=== PATIENT | female | born 1960 | race Caucasian/White ===

== ENCOUNTER 2022-02-28 11:00 | Inpatient (IN) ==
[2022-02-28 11:30] LABS: Basophils % 0.2 % (0.0-0.8); Eosinophils # 0.2 10*3/uL (0.0-0.87); Eosinophils % 1.9 % (0.00-10.9); Hematocrit 24.5 VOL% (35.7-47.0); Immature Granulocytes % 0.6 %; Immature Granulocytes Absolute 0.05 #; Lymphocytes # 2.5 10*3/uL (1.4-4.0); Lymphocytes % 27.2 % (21.3-54.2); Mean Corpuscular HGB Conc 32.7 GM/DL (32-36); Mean Corpuscular Volume 87.2 FL (87-102); Mean Platelet Volume 11.1 FL (9.6-12.0); Monocytes # 0.6 10*3/uL (0.11-0.8); Monocytes % 6.7 % (1.7-12.7); Neutrophils % 63.4 % (38.7-73.9); Platelet Count 110 T/CUMM (130-400); Red Blood Count 2.81 MC/CUMM (3.8-5.5); Red Cell Distribution Width 14.2 % (9.3-17.3); White Blood Count 9.1 T/CUMM (4-12)
[2022-02-28] MEDS ORDERED: ASPIRIN 325 MG TABLET PO STA (11:36)
[2022-02-28] MEDS ORDERED: ONDANSETRON 4 MG/2 ML VIAL IV STA (11:36)
[2022-02-28] MEDS ORDERED: NITROGLYCERIN SL 0.4 MG TABLET SL PRN ×2 (11:36→13:55)
[2022-02-28] MEDS ORDERED: METOPROLOL TARTRATE 5 MG/5 ML VIAL IV ONE (11:41)
[2022-02-28] MEDS: METOPROLOL TARTRATE 5 MG/5 ML VIAL IV SCH ×15 (11:49→17:35)
[2022-02-28 12:48] LABS: Albumin 3.5 G/DL (3.4-5.0); Bilirubin,Total 0.6 MG/DL (0.20-1.00); Calcium 8.4 MG/DL (8.5-10.1); Osmolality,Calculated 292.4 MOS/KG (273-304)
[2022-02-28 13:01] LABS: Barbiturates Screen,Urine Negative (Negative); Benzodiazepines Screen,Urine Negative (Negative); Cannabinoid Screen,Urine Negative (Negative); Opiate Screen,Urine Negative (Negative); Phencyclidine Screen,Urine Negative (Negative)
[2022-02-28] MEDS ORDERED: INSULIN REGULAR 100 UNIT/ML SUBCUT STA (13:31)
[2022-02-28] MEDS ORDERED: GLUCAGON 1 MG VIAL IM PRN ×2 (13:55→17:03)
[2022-02-28] MEDS ORDERED: MAGNESIUM SULF RIDER 2 GM/50 ML PREMIX IV PRN ×2 (13:55→15:18)
[2022-02-28] MEDS ORDERED: DEXTROSE 10% 250 ML BAG IV PRN ×2 (13:55→17:07)
[2022-02-28] MEDS ORDERED: ENOXAPARIN 40 MG/0.4 ML SYRINGE SUBCUT SCH (14:00)
[2022-02-28] MEDS ORDERED: SODIUM CHLORIDE 0.9% 1,000 ML IV STA (14:20)
[2022-02-28 14:33] LABS: CKMB % 7.27 %
[2022-02-28] MEDS: PANTOPRAZOLE 40 MG TABLET PO SCH (14:33)
[2022-02-28 14:37] LABS: High Sensitive Troponin I* 1290.8 ng/L (0-54)
[2022-02-28] MEDS: ASCORBIC ACID 500 MG TABLET PO SCH ×2 (15:07→20:45)
[2022-02-28] MEDS ORDERED: MAGNESIUM SULF RIDER 4 GM/100 ML PREMIX IV PRN (15:18)
[2022-02-28] MEDS: METOPROLOL TARTRATE 25 MG TABLET PO SCH ×2 (15:37→20:44)
[2022-02-28] MEDS ORDERED: POTASSIUM CHLORIDE RIDER 10 MEQ/100 ML PREMIX IV PRN (15:51)
[2022-02-28] MEDS ORDERED: diphenhydrAMINE CAP 50 MG CAPSULE PO ONE (15:51)
[2022-02-28] MEDS ORDERED: HEPARIN/NACL 0.9% 2 UNITS/ML 2,000 UNIT/1,000 ML BAG IV ONE (16:00)
[2022-02-28] MEDS ORDERED: MIDAZOLAM 2 MG/2 ML VIAL ONE ×2 (16:00→16:34)
[2022-02-28] MEDS ORDERED: fentaNYL 100 MCG/2 ML VIAL ONE (16:00)
[2022-02-28] MEDS ORDERED: HYDROmorphone 1 MG/1 ML SYRINGE ONE (16:33)
[2022-02-28] MEDS ORDERED: DIAZEPAM 5 MG TABLET PO ONE (17:00)
[2022-02-28] MEDS ORDERED: MORPHINE 2 MG/1 ML SYRINGE IV PRN (17:04)
[2022-02-28] MEDS ORDERED: NITROGLYCERIN DRIP 50 MG/250 ML BOTTLE IV PRN (17:04)
[2022-02-28] MEDS: SODIUM CHLORIDE 0.9% 1,000 ML IV SCH (17:15)
[2022-02-28] MEDS ORDERED: diphenhydrAMINE CAP 25 MG CAPSULE PO PRN (17:28)
[2022-02-28] MEDS ORDERED: SODIUM CHLORIDE 0.9% 1,000 ML IV PRN ×2 (17:28→17:30)
[2022-02-28 17:46] LABS: Calcium 7.7 MG/DL (8.5-10.1); Osmolality,Calculated 286.8 MOS/KG (273-304); Potassium 4.3 MMOL/L (3.5-5.1)
[2022-02-28] MEDS: INSULIN REGULAR 100 UNIT/ML SUBCUT SCH ×2 (17:51→20:45)
[2022-02-28 18:09] LABS: % Iron Saturation 22.3 % (18-50); Ferritin 22.1 ng/mL (8-252)
[2022-02-28 18:13] LABS: Folate 22.5 NG/ML (5.38-24.0)
[2022-02-28] MEDS: DOCUSATE SODIUM 100 MG CAPSULE PO SCH (20:44)
[2022-03-01] MEDS: ACETAMINOPHEN 325 MG TABLET PO PRN ×3 (01:31→14:52)
[2022-03-01 04:42] LABS: Basophils % 0.1 % (0.0-0.8); Eosinophils # 0.1 10*3/uL (0.0-0.87); Eosinophils % 1.6 % (0.00-10.9); Hemoglobin 7.7 GM/DL (12.0-16.0); Immature Granulocytes % 0.6 %; Immature Granulocytes Absolute 0.05 #; Lymphocytes # 2.7 10*3/uL (1.4-4.0); Lymphocytes % 30.9 % (21.3-54.2); Mean Corpuscular HGB Conc 33.5 GM/DL (32-36); Mean Corpuscular Volume 88.8 FL (87-102); Mean Platelet Volume 11.2 FL (9.6-12.0); Monocytes # 0.7 10*3/uL (0.11-0.8); Monocytes % 7.9 % (1.7-12.7); NRBC # 0.02 10*3/uL; Neutrophils % 58.9 % (38.7-73.9); Platelet Count 91 T/CUMM (130-400); Red Blood Count 2.59 MC/CUMM (3.8-5.5); Red Cell Distribution Width 14.5 % (9.3-17.3); White Blood Count 8.8 T/CUMM (4-12)
[2022-03-01 05:03] LABS: Calcium 7.5 MG/DL (8.5-10.1); Hypochromia 1+; Osmolality,Calculated 290.1 MOS/KG (273-304); Platelet Estimate Decreased; Potassium 3.8 MMOL/L (3.5-5.1)
[2022-03-01] MEDS: ONDANSETRON 4 MG/2 ML VIAL IV PRN ×2 (05:46→21:10)
[2022-03-01] MEDS: SODIUM CHLORIDE 0.9% 1,000 ML IV SCH ×3 (08:38→17:46)
[2022-03-01] MEDS: ENALAPRIL 20 MG TABLET PO SCH (08:48)
[2022-03-01] MEDS: DOCUSATE SODIUM 100 MG CAPSULE PO SCH ×2 (08:48→22:37)
[2022-03-01] MEDS: METOPROLOL TARTRATE 25 MG TABLET PO SCH ×2 (08:48→21:09)
[2022-03-01] MEDS: ASCORBIC ACID 500 MG TABLET PO SCH ×2 (08:48→21:09)
[2022-03-01] MEDS: PANTOPRAZOLE 40 MG TABLET PO SCH (08:48)
[2022-03-01] MEDS: ROSUVASTATIN 20 MG TABLET PO SCH (08:49)
[2022-03-01] MEDS: ASPIRIN EC 81 MG TABLET PO SCH (08:49)
[2022-03-01] MEDS: INSULIN REGULAR 100 UNIT/ML SUBCUT SCH ×4 (08:49→21:12)
[2022-03-01] MEDS ORDERED: ASPIRIN EC 325 MG TABLET PO SCH (09:00)
[2022-03-01 09:27] LABS: Risk Ratio 2.94
[2022-03-01 09:37] LABS: VLDL Cholesterol 42.2 MG/DL
[2022-03-01 09:44] LABS: Hematocrit 25.7 VOL% (35.7-47.0); Hemoglobin 8.6 GM/DL (12.0-16.0)
[2022-03-01] MEDS ORDERED: PANTOPRAZOLE 40 MG VIAL IV ONE (11:00)
[2022-03-01] MEDS: HEPARIN 5,000 UNIT/1 ML VIAL SUBCUT SCH ×2 (11:05→21:17)
[2022-03-01 14:08] LABS: Basophils % 0.3 % (0.0-0.8); Eosinophils # 0.1 10*3/uL (0.0-0.87); Eosinophils % 0.8 % (0.00-10.9); Hematocrit 22.2 VOL% (35.7-47.0); Hemoglobin 7.5 GM/DL (12.0-16.0); Immature Granulocytes % 0.8 %; Immature Granulocytes Absolute 0.07 #; Lymphocytes # 2.1 10*3/uL (1.4-4.0); Lymphocytes % 22.8 % (21.3-54.2); Mean Corpuscular HGB Conc 33.8 GM/DL (32-36); Mean Corpuscular Volume 88.1 FL (87-102); Mean Platelet Volume 11.4 FL (9.6-12.0); Monocytes # 0.7 10*3/uL (0.11-0.8); Monocytes % 7.6 % (1.7-12.7); NRBC # 0.02 10*3/uL; Neutrophils % 67.7 % (38.7-73.9); Red Blood Count 2.52 MC/CUMM (3.8-5.5); Red Cell Distribution Width 14.7 % (9.3-17.3)
[2022-03-01 14:13] LABS: Platelet Count 91 T/CUMM (130-400)
[2022-03-01 14:26] LABS: Anisocytosis 1+
[2022-03-01 14:27] LABS: Hypochromia 1+; Platelet Estimate Decreased; Polychromasia Few
[2022-03-01] MEDS ORDERED: SODIUM CHLORIDE 0.9% 1,000 ML IV PRN (14:38)
[2022-03-01] MEDS ORDERED: FUROSEMIDE 40 MG/4 ML VIAL IV PRN (14:38)
[2022-03-01] MEDS: PANTOPRAZOLE 40 MG VIAL IV SCH (21:10)
[2022-03-01] MEDS: INSULIN GLARGINE 100 UNIT/ML SUBCUT SCH (21:11)
[2022-03-02] MEDS: ACETAMINOPHEN 325 MG TABLET PO PRN ×3 (01:00→23:35)
[2022-03-02] MEDS: ONDANSETRON 4 MG/2 ML VIAL IV PRN ×2 (01:11→21:18)
[2022-03-02] MEDS: SODIUM CHLORIDE 0.9% 1,000 ML IV SCH ×2 (02:12→08:34)
[2022-03-02 02:39] LABS: Basophils % 0.4 % (0.0-0.8); Eosinophils # 0.1 10*3/uL (0.0-0.87); Eosinophils % 1.1 % (0.00-10.9); Immature Granulocytes % 0.4 %; Immature Granulocytes Absolute 0.03 #; Lymphocytes # 2.5 10*3/uL (1.4-4.0); Lymphocytes % 34.2 % (21.3-54.2); Mean Corpuscular Volume 88.2 FL (87-102); Mean Platelet Volume 11.5 FL (9.6-12.0); Monocytes # 0.6 10*3/uL (0.11-0.8); Monocytes % 8.2 % (1.7-12.7); NRBC # 0.02 10*3/uL; Neutrophils % 55.7 % (38.7-73.9); Red Cell Distribution Width 15.3 % (9.3-17.3); White Blood Count 7.3 T/CUMM (4-12)
[2022-03-02 02:42] LABS: Hemoglobin 10.2 GM/DL (12.0-16.0)
[2022-03-02 02:43] LABS: Platelet Count 79 T/CUMM (130-400)
[2022-03-02 02:50] LABS: INR 1.1; PT Patient Result 11.6 SECS (10.5-12.0); Partial Thromboplastin Time 23.6 SECS (23.8-32.1)
[2022-03-02 02:51] LABS: Potassium 3.5 MMOL/L (3.5-5.1)
[2022-03-02 02:59] LABS: Hypochromia 1+; Platelet Estimate Decreased; Polychromasia Few; Reactive Lymphocytes 1+
[2022-03-02] MEDS: DOCUSATE SODIUM 100 MG CAPSULE PO SCH ×2 (08:37→21:46)
[2022-03-02] MEDS: ASCORBIC ACID 500 MG TABLET PO SCH ×2 (08:47→21:18)
[2022-03-02] MEDS: ASPIRIN EC 81 MG TABLET PO SCH (08:47)
[2022-03-02] MEDS: PANTOPRAZOLE 40 MG VIAL IV SCH ×2 (09:00→21:18)
[2022-03-02] MEDS: HEPARIN 5,000 UNIT/1 ML VIAL SUBCUT SCH ×2 (09:00→21:38)
[2022-03-02] MEDS: ENALAPRIL 20 MG TABLET PO SCH (09:00)
[2022-03-02] MEDS: INSULIN REGULAR 100 UNIT/ML SUBCUT SCH ×4 (09:00→21:20)
[2022-03-02] MEDS: METOPROLOL TARTRATE 25 MG TABLET PO SCH ×2 (09:00→21:18)
[2022-03-02] MEDS: ROSUVASTATIN 20 MG TABLET PO SCH (09:00)
[2022-03-02] MEDS ORDERED: POTASSIUM CHLORIDE 20 MEQ TABLET PO ONE (11:00)
[2022-03-02] MEDS: INSULIN GLARGINE 100 UNIT/ML SUBCUT SCH (21:20)
[2022-03-03 04:39] LABS: Basophils % 0.4 % (0.0-0.8); Eosinophils # 0.1 10*3/uL (0.0-0.87); Eosinophils % 2.2 % (0.00-10.9); Hematocrit 26.6 VOL% (35.7-47.0); Hemoglobin 8.9 GM/DL (12.0-16.0); Immature Granulocytes Absolute 0.05 #; Lymphocytes # 1.9 10*3/uL (1.4-4.0); Lymphocytes % 37.3 % (21.3-54.2); Mean Corpuscular HGB Conc 33.5 GM/DL (32-36); Mean Corpuscular Volume 90.5 FL (87-102); Mean Platelet Volume 11.7 FL (9.6-12.0); Monocytes # 0.4 10*3/uL (0.11-0.8); Monocytes % 8.5 % (1.7-12.7); Neutrophils % 50.6 % (38.7-73.9); Red Blood Count 2.94 MC/CUMM (3.8-5.5); Red Cell Distribution Width 15.9 % (9.3-17.3)
[2022-03-03 04:43] LABS: Platelet Count 63 T/CUMM (130-400)
[2022-03-03 04:44] LABS: White Blood Count 5.1 T/CUMM (4-12)
[2022-03-03 04:53] LABS: Calcium 8.2 MG/DL (8.5-10.1); Osmolality,Calculated 286.3 MOS/KG (273-304); Potassium 3.5 MMOL/L (3.5-5.1)
[2022-03-03 05:14] LABS: Risk Ratio 2.57; VLDL Cholesterol 33.6 MG/DL
[2022-03-03] MEDS ORDERED: DEXTROSE 50% 25 GM/50 ML VIAL IV PRN (09:01)
[2022-03-03] MEDS: ASPIRIN EC 81 MG TABLET PO SCH (09:51)
[2022-03-03] MEDS: METOPROLOL TARTRATE 25 MG TABLET PO SCH ×2 (09:51→21:01)
[2022-03-03] MEDS: ASCORBIC ACID 500 MG TABLET PO SCH ×2 (09:51→21:00)
[2022-03-03] MEDS: ENALAPRIL 20 MG TABLET PO SCH (09:52)
[2022-03-03] MEDS: INSULIN REGULAR 100 UNIT/ML SUBCUT SCH ×4 (09:52→21:01)
[2022-03-03] MEDS: PANTOPRAZOLE 40 MG VIAL IV SCH ×2 (09:54→21:01)
[2022-03-03] MEDS: HEPARIN 5,000 UNIT/1 ML VIAL SUBCUT SCH ×2 (09:54→21:03)
[2022-03-03] MEDS: ACETAMINOPHEN 325 MG TABLET PO PRN ×2 (10:04→18:21)
[2022-03-03] MEDS: ROSUVASTATIN 20 MG TABLET PO SCH (10:06)
[2022-03-03] MEDS: DOCUSATE SODIUM 100 MG CAPSULE PO SCH ×2 (10:48→21:03)
[2022-03-03 12:29] LABS: Arterial Base Excess iSTAT -1 MMOL/L (-2.5-2.5); Arterial Bicarbonate iSTAT 22.5 MMOL/L (20-26); Arterial O2 Saturation iSTAT 98 % (95-100); Arterial PCO2 iSTAT 30 MM HG (35-48); Arterial PO2 iSTAT 95 MM HG (80-95); Arterial Total CO2 iSTAT 23 MMO/L (23-27); Arterial pH iSTAT 7.485 (7.35-7.45)
[2022-03-03] MEDS: SODIUM CHLORIDE 0.9% 1,000 ML IV SCH (15:30)
[2022-03-03] MEDS: CHLORHEXIDINE 4% SOLN 118 ML BOTTLE TOP SCH ×2 (16:30→21:03)
[2022-03-03] MEDS ORDERED: ZALEPLON 5 MG CAPSULE PO PRN (20:44)
[2022-03-03] MEDS ORDERED: INSULIN GLARGINE 100 UNIT/ML SUBCUT SCH (21:00)
[2022-03-03] MEDS: CHLORHEXIDINE 0.12% ORAL RINSE 60 ML BOTTLE SWISH/SPIT SCH (21:04)
[2022-03-04 03:05] LABS: Basophils % 0.3 % (0.0-0.8); Eosinophils # 0.1 10*3/uL (0.0-0.87); Hematocrit 25.3 VOL% (35.7-47.0); Hemoglobin 8.4 GM/DL (12.0-16.0); Immature Granulocytes Absolute 0.04 #; Lymphocytes # 1.5 10*3/uL (1.4-4.0); Lymphocytes % 37.3 % (21.3-54.2); Mean Corpuscular HGB Conc 33.2 GM/DL (32-36); Mean Corpuscular Volume 90.7 FL (87-102); Monocytes # 0.3 10*3/uL (0.11-0.8); Monocytes % 8.4 % (1.7-12.7); Platelet Count 60 T/CUMM (130-400); Red Blood Count 2.79 MC/CUMM (3.8-5.5); Red Cell Distribution Width 16.6 % (9.3-17.3); White Blood Count 3.9 T/CUMM (4-12)
[2022-03-04 03:25] LABS: Albumin 2.8 G/DL (3.4-5.0); Bilirubin,Total 0.5 MG/DL (0.20-1.00); Osmolality,Calculated 285.8 MOS/KG (273-304); Potassium 3.4 MMOL/L (3.5-5.1); Total Protein 5.7 G/DL (6.4-8.2)
[2022-03-04 03:27] LABS: Platelet Estimate Decreased
[2022-03-04] MEDS: POTASSIUM CHLORIDE 20 MEQ TABLET PO PRN ×2 (03:45→04:30)
[2022-03-04] MEDS: CHLORHEXIDINE 4% SOLN 118 ML BOTTLE TOP SCH (03:53)
[2022-03-04] MEDS ORDERED: VANCOMYCIN 500 MG VIAL ONE (04:20)
[2022-03-04] MEDS ORDERED: PAPAVERINE 60 MG/2 ML VIAL ONE (04:20)
[2022-03-04] MEDS ORDERED: VANCOMYCIN 1,000 MG VIAL ONE (04:20)
[2022-03-04] MEDS ORDERED: CEFUROXIME INJ 1,500 MG in SODIUM CHLORIDE 0.9% 100 ML IV ONE (05:00)
[2022-03-04] MEDS: ONDANSETRON 4 MG/2 ML VIAL IV PRN (05:55)
[2022-03-04] MEDS ORDERED: DIAZEPAM 5 MG TABLET PO ONE (06:00)
[2022-03-04] MEDS ORDERED: LIDOCAINE 2% 5 ML VIAL ONE ×2 (06:01→10:39)
[2022-03-04] MEDS ORDERED: PHENYLEPHRINE 1 MG/10 ML SYRINGE IV ONE (06:01)
[2022-03-04] MEDS ORDERED: ETOMIDATE 40 MG/20 ML VIAL IV ONE (06:01)
[2022-03-04] MEDS ORDERED: MIDAZOLAM 10 MG/2 ML VIAL ONE ×4 (06:01→09:30)
[2022-03-04] MEDS ORDERED: VECURONIUM 10 MG VIAL IV ONE ×3 (06:01→09:29)
[2022-03-04] MEDS ORDERED: SUFentanil 250 MCG/5 ML AMP ONE (06:02)
[2022-03-04] MEDS ORDERED: MINERAL OIL/PETROLATUM OPH OINT 3.5 GM TUBE ONE (06:03)
[2022-03-04] MEDS ORDERED: SODIUM BICARBONATE 50 MEQ/50 ML VIAL IV ONE ×2 (07:16→10:41)
[2022-03-04] MEDS ORDERED: CALCIUM CHLORIDE 1,000 MG/10 ML SYRINGE IV ONE (07:16)
[2022-03-04] MEDS ORDERED: PHENYLEPHRINE DRIP 40 MG/250 ML PREMIX IV ONE (07:16)
[2022-03-04] MEDS ORDERED: POTASSIUM CHLORIDE RIDER 20 MEQ/100 ML PREMIX IV ONE (07:16)
[2022-03-04] MEDS ORDERED: EPINEPHrine 1 MG/10 ML SYRINGE ONE (07:16)
[2022-03-04] MEDS ORDERED: NITROPRUSSIDE 50 MG/2 ML VIAL ONE (07:16)
[2022-03-04] MEDS ORDERED: ALBUMIN 5% 12.5 GM/250 ML VIAL IV ONE ×2 (07:17)
[2022-03-04 07:39] LABS: ABG Base Excess -3.1 MMOL/L (-2.5-2.5); ABG HCO3 21.8 MMOL/L (20-26); ABG Oxygen Saturation 99.8 % (95-100); ABG PCO2 52.1 MM HG (35-48); ABG PH 7.272 (7.35-7.45); ABG TCO2 22.7 MMOL/L (23-27); Glucose Heart Surgery 154 MG/DL (74-106); Hematocrit Heart Surgery 24.9 PERCENT (37-47); Ionized Calcium Arterial 1.17 MMOL/L (1.21-1.46); PCO2 Patient Temp Arterial 49.6 MMHG; PH Patient Temp Arterial 7.285; Patient Temperature 36 CELCIUS; Potassium Heart/CVR 3.5 MMOL/L (3.5-5.1); Sodium Heart/CVR 144 MMOL/L (135-145)
[2022-03-04 07:40] LABS: Bacteria,Urine Occasional /HPF (Few); Mucus,Urine Occasional /LPF (Occasional); Squamous Epithelial Cell,Urine Occasional /HPF (0-10)
[2022-03-04 07:42] LABS: Bilirubin,Urine Negative (Negative); Blood, Urine Negative (Negative); Glucose,Urine (UA) Negative (Negative); Ketones,Urine Trace mg/dL (Negative); Nitrite,Urine Negative (Negative); Protein,Urine Negative (Negative); Urine Appearance Clear (Clear); Urine Color Yellow (Yellow); Urine Specific Gravity 1.015 (1.001-1.035); Urine Urobilinogen 0.2 eU/dL (<2.0); Urine pH 5.5 (4.5-8.0)
[2022-03-04] MEDS ORDERED: CALCIUM CHLORIDE 1,000 MG/10 ML VIAL IV ONE ×2 (08:39→10:57)
[2022-03-04] MEDS ORDERED: AMINOCAPROIC ACID 5,000 MG/20 ML VIAL ONE (08:39)
[2022-03-04] MEDS ORDERED: HEPARIN/NACL 0.9% 2 UNITS/ML 1,000 UNIT/500 ML BAG IV ONE (08:39)
[2022-03-04] MEDS ORDERED: LACTATED RINGERS 1,000 ML IV ONE (08:39)
[2022-03-04] MEDS ORDERED: SODIUM CHLORIDE 0.9% 1,000 ML IV ONE (08:39)
[2022-03-04] MEDS ORDERED: SODIUM CHLORIDE 0.9% 250 ML IV ONE (08:39)
[2022-03-04] MEDS ORDERED: PHENYLEPHRINE DRIP 20 MG/250 ML PREMIX IV ONE ×2 (08:39→12:07)
[2022-03-04] MEDS ORDERED: SEVOFLURANE 1 UNIT/15 MINUTE INH ONE (08:39)
[2022-03-04] MEDS: DOCUSATE SODIUM 100 MG CAPSULE PO SCH (08:58)
[2022-03-04] MEDS: INSULIN REGULAR 100 UNIT/ML SUBCUT SCH (08:58)
[2022-03-04] MEDS: ASPIRIN EC 81 MG TABLET PO SCH (08:58)
[2022-03-04] MEDS: SODIUM CHLORIDE 0.9% 1,000 ML IV SCH (08:59)
[2022-03-04] MEDS: METOPROLOL TARTRATE 25 MG TABLET PO SCH (08:59)
[2022-03-04] MEDS: CHLORHEXIDINE 0.12% ORAL RINSE 60 ML BOTTLE SWISH/SPIT SCH ×2 (08:59→20:36)
[2022-03-04] MEDS: PANTOPRAZOLE 40 MG VIAL IV SCH (08:59)
[2022-03-04] MEDS: ENALAPRIL 20 MG TABLET PO SCH (08:59)
[2022-03-04] MEDS: ROSUVASTATIN 20 MG TABLET PO SCH (08:59)
[2022-03-04] MEDS: HEPARIN 5,000 UNIT/1 ML VIAL SUBCUT SCH (08:59)
[2022-03-04] MEDS: ASCORBIC ACID 500 MG TABLET PO SCH (08:59)
[2022-03-04 09:20] LABS: PCO2 Patient Temp Venous 34.6 MM HG; PH Patient Temp Venous 7.399; PO2 Patient Temp Venous 33.9 MM HG; Potassium Heart/CVR 5.5 MMOL/L (3.5-5.1); VBG Base Excess -2.9 MEQ/L (0-4); VBG HCO3 21.7 MEQ/L (24-28); VBG Oxygen Saturation 74.8 %; VBG PH 7.356; VBG PO2 41.7 MMHG (17-40); VBG Total CO2 20.8 MMOL/L
[2022-03-04] MEDS ORDERED: SUFentanil 50 MCG/ML AMP ONE ×2 (09:29)
[2022-03-04 09:50] LABS: Hematocrit Heart Surgery 29.2 PERCENT (37-47); Hemoglobin Heart Surgery 9.4 G/DL (12.0-16.0); PCO2 Patient Temp Venous 38.1 MM HG; PH Patient Temp Venous 7.4; PO2 Patient Temp Venous 34.6 MM HG; Potassium Heart/CVR 5.1 MMOL/L (3.5-5.1); VBG Base Excess -0.9 MEQ/L (0-4); VBG HCO3 23.3 MEQ/L (24-28); VBG Oxygen Saturation 74.5 %; VBG PCO2 44.1 MMHG (41-51); VBG PH 7.357; VBG PO2 42.7 MMHG (17-40); VBG Total CO2 22.8 MMOL/L
[2022-03-04] MEDS ORDERED: THROMBIN TOPICAL (RECOMBINANT) 5,000 UNIT VIAL TOP ONE (09:56)
[2022-03-04 10:33] LABS: ABG HCO3 21.9 MMOL/L (20-26); ABG Oxygen Saturation 99.6 % (95-100); ABG PCO2 34.5 MM HG (35-48); ABG PH 7.397 (7.35-7.45); ABG TCO2 19.1 MMOL/L (23-27); Glucose Heart Surgery 372 MG/DL (74-106); Hematocrit Heart Surgery 33.2 PERCENT (37-47); Hemoglobin Heart Surgery 10.8 G/DL (12.0-16.0); Ionized Calcium Arterial 1.17 MMOL/L (1.21-1.46); PCO2 Patient Temp Arterial 34.5 MMHG; PH Patient Temp Arterial 7.397; Patient Temperature 37 CELCIUS; Potassium Heart/CVR 4.4 MMOL/L (3.5-5.1); Sodium Heart/CVR 139 MMOL/L (135-145)
[2022-03-04] MEDS ORDERED: MAGNESIUM SULFATE 5 GM/10 ML VIAL IV ONE (10:39)
[2022-03-04] MEDS ORDERED: ALBUMIN 25% 25 GM/100 ML VIAL IV ONE (10:39)
[2022-03-04] MEDS ORDERED: PROTAMINE SULFATE 250 MG/25 ML VIAL IV ONE (10:40)
[2022-03-04] MEDS ORDERED: MANNITOL 12.5 GM/50 ML VIAL IV ONE (10:40)
[2022-03-04] MEDS ORDERED: methylPREDNISolone SOD SUC 1,000 MG/8 ML VIAL ONE (10:40)
[2022-03-04] MEDS ORDERED: DEXTROSE 5% KCL 20 MEQ 20 MEQ/1,000 ML BAG IV ONE (10:40)
[2022-03-04] MEDS ORDERED: FUROSEMIDE 20 MG/2 ML VIAL ONE (10:40)
[2022-03-04] MEDS ORDERED: HEPARIN 10,000 UNIT/10 ML VIAL ONE (10:40)
[2022-03-04] MEDS ORDERED: PHENYLEPHRINE DRIP 40 MG/250 ML PREMIX IV PRN (10:49)
[2022-03-04] MEDS ORDERED: MAGNESIUM SULF RIDER 2 GM/50 ML PREMIX IV PRN (10:49)
[2022-03-04] MEDS ORDERED: LACTATED RINGERS 250 ML IV PRN (10:49)
[2022-03-04] MEDS ORDERED: ONDANSETRON 4 MG/2 ML VIAL IV PRN (10:49)
[2022-03-04] MEDS ORDERED: NITROPRUSSIDE 100 MG in DEXTROSE 5% 250 ML IV PRN (10:49)
[2022-03-04] MEDS ORDERED: CALCIUM CHLORIDE 1,000 MG/10 ML SYRINGE IV PRN (10:49)
[2022-03-04] MEDS ORDERED: INSULIN REGULAR 100 UNIT/ML IV PRN (10:49)
[2022-03-04] MEDS ORDERED: INSULIN REGULAR 100 UNIT/ML IV ONE (10:49)
[2022-03-04] MEDS ORDERED: DEXTROSE 10% 250 ML BAG IV PRN ×2 (10:49)
[2022-03-04] MEDS ORDERED: ACETAMINOPHEN 650 MG SUPP RECTAL PRN (10:49)
[2022-03-04] MEDS ORDERED: MIDAZOLAM 10 MG/2 ML VIAL IV PRN (10:49)
[2022-03-04] MEDS ORDERED: CHLORHEXIDINE 4% SOLN 118 ML BOTTLE TOP PRN (10:49)
[2022-03-04] MEDS ORDERED: VECURONIUM 10 MG VIAL IV PRN ×2 (10:49)
[2022-03-04] MEDS ORDERED: MAGNESIUM SULF RIDER 4 GM/100 ML PREMIX IV PRN (10:49)
[2022-03-04] MEDS ORDERED: MIDAZOLAM 2 MG/2 ML VIAL IV PRN (10:49)
[2022-03-04] MEDS ORDERED: POTASSIUM CHLORIDE RIDER 10 MEQ/100 ML PREMIX IV PRN (10:49)
[2022-03-04] MEDS ORDERED: SODIUM CHLORIDE 0.45% 1,000 ML IV SCH ×2 (11:00)
[2022-03-04 11:41] LABS: ABG Base Excess -0.5 MMOL/L (-2.5-2.5); ABG Oxygen Saturation 98.7 % (95-100); ABG PCO2 36.3 MM HG (35-48); ABG TCO2 21.2 MMOL/L (23-27); Glucose Heart Surgery 345 MG/DL (74-106); Hematocrit Heart Surgery 33.3 PERCENT (37-47); Hemoglobin Heart Surgery 10.8 G/DL (12.0-16.0); Potassium Heart/CVR 3.9 MMOL/L (3.5-5.1)
[2022-03-04 11:43] LABS: Basophils % 0.2 % (0.0-0.8); Eosinophils # 0.1 10*3/uL (0.0-0.87); Hematocrit 31.8 VOL% (35.7-47.0); Hemoglobin 10.6 GM/DL (12.0-16.0); Immature Granulocytes Absolute 0.12 #; Lymphocytes # 1.3 10*3/uL (1.4-4.0); Lymphocytes % 10.8 % (21.3-54.2); Mean Corpuscular HGB Conc 33.3 GM/DL (32-36); Mean Corpuscular Volume 86.2 FL (87-102); Monocytes # 0.7 10*3/uL (0.11-0.8); Monocytes % 5.8 % (1.7-12.7); Neutrophils % 81.2 % (38.7-73.9); Platelet Count 108 T/CUMM (130-400); Red Blood Count 3.69 MC/CUMM (3.8-5.5); Red Cell Distribution Width 17.5 % (9.3-17.3); White Blood Count 12.1 T/CUMM (4-12)
[2022-03-04 11:53] LABS: INR 1.1; PT Patient Result 11.9 SECS (10.5-12.0)
[2022-03-04] MEDS: POTASSIUM CHLORIDE RIDER 20 MEQ/100 ML PREMIX IV PRN ×2 (11:55→20:36)
[2022-03-04] MEDS: INSULIN REGULAR DRIP 100 ML IV SCH (11:58)
[2022-03-04 12:22] LABS: Bilirubin,Total 1.5 MG/DL (0.20-1.00); Calcium 9.8 MG/DL (8.5-10.1); Osmolality,Calculated 293.1 MOS/KG (273-304); Potassium 3.9 MMOL/L (3.5-5.1); Total Protein 5.5 G/DL (6.4-8.2)
[2022-03-04 12:23] LABS: CKMB % 5.41 %
[2022-03-04 12:25] LABS: High Sensitive Troponin I* 2987.6 ng/L (0-54)
[2022-03-04] MEDS ORDERED: AMIODARONE 150 MG/3 ML VIAL ONE (13:14)
[2022-03-04] MEDS ORDERED: AMIODARONE 450 MG/9 ML VIAL IV ONE (13:14)
[2022-03-04] MEDS ORDERED: AMIODARONE INJ 150 MG in DEXTROSE 5% 100 ML IV ONE (13:17)
[2022-03-04 13:18] LABS: ABG Base Excess 0.3 MMOL/L (-2.5-2.5); ABG HCO3 24.8 MMOL/L (20-26); ABG Oxygen Saturation 99.8 % (95-100); ABG PCO2 38.9 MM HG (35-48); ABG PH 7.412 (7.35-7.45); ABG TCO2 22.3 MMOL/L (23-27); Glucose Heart Surgery 307 MG/DL (74-106); Hematocrit Heart Surgery 33.4 PERCENT (37-47); Hemoglobin Heart Surgery 10.8 G/DL (12.0-16.0)
[2022-03-04] MEDS: ALBUMIN 5% 12.5 GM/250 ML VIAL IV PRN ×2 (13:26→17:02)
[2022-03-04] MEDS ORDERED: AMIODARONE INJ 450 MG in DEXTROSE 5% 241 ML IV SCH ×2 (13:30→19:30)
[2022-03-04] MEDS: LACTATED RINGERS 1,000 ML IV PRN ×2 (13:35→17:04)
[2022-03-04 16:31] LABS: ABG Base Excess -0.6 MMOL/L (-2.5-2.5); ABG HCO3 23.9 MMOL/L (20-26); ABG Oxygen Saturation 98.2 % (95-100); ABG PCO2 41.2 MM HG (35-48); ABG PH 7.381 (7.35-7.45); ABG TCO2 22.2 MMOL/L (23-27); Glucose Heart Surgery 268 MG/DL (74-106); Hematocrit Heart Surgery 31.6 PERCENT (37-47); Hemoglobin Heart Surgery 10.2 G/DL (12.0-16.0); Potassium Heart/CVR 4.1 MMOL/L (3.5-5.1)
[2022-03-04] MEDS: CEFUROXIME INJ 1,500 MG in SODIUM CHLORIDE 0.9% 100 ML IV SCH (18:05)
[2022-03-04 19:35] LABS: ABG Base Excess -1.2 MMOL/L (-2.5-2.5); ABG HCO3 23.4 MMOL/L (20-26); ABG Oxygen Saturation 96.8 % (95-100); ABG PCO2 38.5 MM HG (35-48); ABG PH 7.392 (7.35-7.45); ABG PO2 88.7 MM HG (80-95); ABG TCO2 21.2 MMOL/L (23-27); Glucose Heart Surgery 242 MG/DL (74-106); Hematocrit Heart Surgery 32.5 PERCENT (37-47); Hemoglobin Heart Surgery 10.5 G/DL (12.0-16.0); Potassium Heart/CVR 3.8 MMOL/L (3.5-5.1)
[2022-03-04] MEDS: MORPHINE 2 MG/1 ML SYRINGE IV PRN (19:46)
[2022-03-04] MEDS ORDERED: FUROSEMIDE 40 MG/4 ML VIAL IV ONE (20:11)
[2022-03-04] MEDS: MORPHINE 10 MG/1 ML VIAL IV PRN (20:40)
[2022-03-04 20:47] LABS: CKMB % 7.16 %
[2022-03-05] MEDS: MORPHINE 10 MG/1 ML VIAL IV PRN ×2 (00:26→02:22)
[2022-03-05 04:41] LABS: ABG Base Excess -3.1 MMOL/L (-2.5-2.5); ABG HCO3 21.7 MMOL/L (20-26); ABG Oxygen Saturation 93.6 % (95-100); ABG PCO2 41.3 MM HG (35-48); ABG PH 7.343 (7.35-7.45); ABG PO2 74.6 MM HG (80-95); ABG TCO2 20.3 MMOL/L (23-27); Glucose Heart Surgery 200 MG/DL (74-106); Hematocrit Heart Surgery 33.4 PERCENT (37-47); Hemoglobin Heart Surgery 10.8 G/DL (12.0-16.0); Potassium Heart/CVR 4.6 MMOL/L (3.5-5.1)
[2022-03-05] MEDS: INSULIN REGULAR DRIP 100 ML IV SCH (04:44)
[2022-03-05 04:45] LABS: Basophils % 0.1 % (0.0-0.8); Hematocrit 32.7 VOL% (35.7-47.0); Hemoglobin 10.8 GM/DL (12.0-16.0); Immature Granulocytes % 0.8 %; Immature Granulocytes Absolute 0.09 #; Lymphocytes # 1.2 10*3/uL (1.4-4.0); Lymphocytes % 10.6 % (21.3-54.2); Mean Corpuscular Volume 87.7 FL (87-102); Mean Platelet Volume 11.3 FL (9.6-12.0); Monocytes # 0.6 10*3/uL (0.11-0.8); Monocytes % 4.7 % (1.7-12.7); Neutrophils % 83.8 % (38.7-73.9); Platelet Count 95 T/CUMM (130-400); Red Blood Count 3.73 MC/CUMM (3.8-5.5); Red Cell Distribution Width 19.2 % (9.3-17.3); White Blood Count 11.7 T/CUMM (4-12)
[2022-03-05 05:01] LABS: CKMB % 10.02 %
[2022-03-05 05:06] LABS: High Sensitive Troponin I* 21130.6 ng/L (0-54)
[2022-03-05 05:08] LABS: Albumin 3.4 G/DL (3.4-5.0); Bilirubin,Direct 0.27 MG/DL (0.0-0.20); Bilirubin,Total 0.8 MG/DL (0.20-1.00); Calcium 8.5 MG/DL (8.5-10.1); Osmolality,Calculated 288.1 MOS/KG (273-304); Potassium 4.6 MMOL/L (3.5-5.1); Total Protein 6.2 G/DL (6.4-8.2)
[2022-03-05] MEDS: CEFUROXIME INJ 1,500 MG in SODIUM CHLORIDE 0.9% 100 ML IV SCH ×2 (06:00→18:01)
[2022-03-05] MEDS: MORPHINE 2 MG/1 ML SYRINGE IV PRN (06:14)
[2022-03-05] MEDS ORDERED: GLUCAGON 1 MG VIAL IM PRN ×2 (09:38)
[2022-03-05] MEDS ORDERED: DEXTROSE 10% 250 ML BAG IV PRN (09:38)
[2022-03-05] MEDS ORDERED: MAGNESIUM SULF RIDER 4 GM/100 ML PREMIX IV PRN (09:38)
[2022-03-05] MEDS ORDERED: MAGNESIUM HYDROXIDE SUSP 30 ML UDCUP PO PRN (09:38)
[2022-03-05] MEDS ORDERED: SODIUM CHLOR 0.45% KCL 20 MEQ 20 MEQ/1,000 ML BAG IV SCH (09:38)
[2022-03-05] MEDS ORDERED: DEXTROSE 50% 25 GM/50 ML VIAL IV PRN (09:38)
[2022-03-05] MEDS ORDERED: ONDANSETRON 4 MG/2 ML VIAL IV PRN (09:38)
[2022-03-05] MEDS ORDERED: MAGNESIUM SULF RIDER 2 GM/50 ML PREMIX IV PRN (09:38)
[2022-03-05] MEDS ORDERED: ZALEPLON 5 MG CAPSULE PO PRN (09:38)
[2022-03-05] MEDS: CHLORHEXIDINE 0.12% ORAL RINSE 60 ML BOTTLE SWISH/SPIT SCH ×2 (09:40→22:58)
[2022-03-05] MEDS: ASCORBIC ACID 500 MG TABLET PO SCH ×2 (10:01→21:17)
[2022-03-05] MEDS: METOPROLOL TARTRATE 25 MG TABLET PO SCH ×2 (10:01→21:17)
[2022-03-05] MEDS: AMIODARONE 200 MG TABLET PO SCH ×2 (10:02→21:14)
[2022-03-05] MEDS: PANTOPRAZOLE 40 MG VIAL IV SCH ×2 (10:02→21:13)
[2022-03-05] MEDS: oxyCODONE/ACETAMINOPHEN 5-325 MG TABLET PO PRN ×3 (10:03→21:21)
[2022-03-05] MEDS: INSULIN REGULAR 100 UNIT/ML SUBCUT SCH ×4 (10:09→21:18)
[2022-03-05 12:52] LABS: CKMB % 9.35 %; High Sensitive Troponin I* 14203.2 ng/L (0-54)
[2022-03-05] MEDS: INSULIN GLARGINE 100 UNIT/ML SUBCUT SCH (21:18)
[2022-03-06] MEDS: oxyCODONE/ACETAMINOPHEN 5-325 MG TABLET PO PRN ×4 (01:43→23:56)
[2022-03-06 03:35] LABS: Basophils % 0.1 % (0.0-0.8); Eosinophils % 0.1 % (0.00-10.9); Hematocrit 30.7 VOL% (35.7-47.0); Hemoglobin 9.8 GM/DL (12.0-16.0); Immature Granulocytes % 0.7 %; Immature Granulocytes Absolute 0.09 #; Lymphocytes # 2.3 10*3/uL (1.4-4.0); Mean Corpuscular HGB Conc 31.9 GM/DL (32-36); Mean Corpuscular Volume 91.1 FL (87-102); Mean Platelet Volume 11.7 FL (9.6-12.0); Monocytes # 1.2 10*3/uL (0.11-0.8); Monocytes % 9.9 % (1.7-12.7); NRBC # 0.02 10*3/uL; Neutrophils % 70.2 % (38.7-73.9); Platelet Count 90 T/CUMM (130-400); Red Blood Count 3.37 MC/CUMM (3.8-5.5); Red Cell Distribution Width 18.7 % (9.3-17.3)
[2022-03-06 03:55] LABS: Osmolality,Calculated 275.1 MOS/KG (273-304); Potassium 4.4 MMOL/L (3.5-5.1)
[2022-03-06 03:59] LABS: Albumin 2.9 G/DL (3.4-5.0); Bilirubin,Direct 0.22 MG/DL (0.0-0.20); Bilirubin,Indirect 0.5 MG/DL (0.0-1.0); Bilirubin,Total 0.7 MG/DL (0.20-1.00); CKMB % 5.98 %; Calcium 7.9 MG/DL (8.5-10.1); Potassium 4.4 MMOL/L (3.5-5.1); Total Protein 5.8 G/DL (6.4-8.2)
[2022-03-06 04:02] LABS: High Sensitive Troponin I* 10292.8 ng/L (0-54)
[2022-03-06] MEDS ORDERED: FUROSEMIDE 40 MG/4 ML VIAL IV ONE (06:00)
[2022-03-06] MEDS: AMIODARONE 200 MG TABLET PO SCH ×3 (06:26→21:30)
[2022-03-06] MEDS ORDERED: DILTIAZEM 25 MG/5 ML VIAL IV ONE (06:30)
[2022-03-06] MEDS: DILTIAZEM INJ 100 MG in SODIUM CHLORIDE 0.9% 100 ML IV SCH (07:07)
[2022-03-06] MEDS: METOPROLOL TARTRATE 25 MG TABLET PO SCH ×3 (07:32→21:30)
[2022-03-06] MEDS: PANTOPRAZOLE 40 MG VIAL IV SCH ×2 (08:16→21:32)
[2022-03-06] MEDS: ASPIRIN EC 81 MG TABLET PO SCH (08:18)
[2022-03-06] MEDS: ASCORBIC ACID 500 MG TABLET PO SCH ×2 (08:18→21:30)
[2022-03-06] MEDS: DOCUSATE SODIUM 100 MG CAPSULE PO SCH (08:18)
[2022-03-06] MEDS: FERROUS SULFATE 325 MG TABLET PO SCH (08:19)
[2022-03-06] MEDS: INSULIN REGULAR 100 UNIT/ML SUBCUT SCH ×4 (08:19→21:31)
[2022-03-06] MEDS: CHLORHEXIDINE 0.12% ORAL RINSE 60 ML BOTTLE SWISH/SPIT SCH ×2 (08:43→21:30)
[2022-03-06] MEDS: ROSUVASTATIN 20 MG TABLET PO SCH (13:12)
[2022-03-06] MEDS: INSULIN GLARGINE 100 UNIT/ML SUBCUT SCH (21:31)
[2022-03-07 05:56] LABS: Basophils % 0.1 % (0.0-0.8); Eosinophils # 0.1 10*3/uL (0.0-0.87); Eosinophils % 0.8 % (0.00-10.9); Hematocrit 32.2 VOL% (35.7-47.0); Hemoglobin 10.1 GM/DL (12.0-16.0); Immature Granulocytes % 0.8 %; Lymphocytes # 2.6 10*3/uL (1.4-4.0); Lymphocytes % 21.3 % (21.3-54.2); Mean Corpuscular HGB Conc 31.4 GM/DL (32-36); Mean Corpuscular Volume 92.3 FL (87-102); Mean Platelet Volume 11.7 FL (9.6-12.0); Monocytes # 1.2 10*3/uL (0.11-0.8); Monocytes % 9.6 % (1.7-12.7); Neutrophils % 67.4 % (38.7-73.9); Platelet Count 103 T/CUMM (130-400); Red Blood Count 3.49 MC/CUMM (3.8-5.5); Red Cell Distribution Width 18.2 % (9.3-17.3); White Blood Count 12.1 T/CUMM (4-12)
[2022-03-07 06:19] LABS: Albumin 2.9 G/DL (3.4-5.0); Bilirubin,Direct 0.31 MG/DL (0.0-0.20); Bilirubin,Indirect 0.6 MG/DL (0.0-1.0); Bilirubin,Total 0.9 MG/DL (0.20-1.00); CKMB % 2.46 %; Calcium 8.3 MG/DL (8.5-10.1); High Sensitive Troponin I* 6362.1 ng/L (0-54); Osmolality,Calculated 274.2 MOS/KG (273-304); Potassium 4.3 MMOL/L (3.5-5.1); Total Protein 6.3 G/DL (6.4-8.2)
[2022-03-07] MEDS: oxyCODONE/ACETAMINOPHEN 5-325 MG TABLET PO PRN ×3 (06:31→21:22)
[2022-03-07] MEDS ORDERED: INSULIN GLARGINE 100 UNIT/ML SUBCUT SCH (09:00)
[2022-03-07] MEDS: DOCUSATE SODIUM 100 MG CAPSULE PO SCH (09:24)
[2022-03-07] MEDS: AMIODARONE 200 MG TABLET PO SCH ×2 (09:24→21:21)
[2022-03-07] MEDS: ASPIRIN EC 81 MG TABLET PO SCH (09:25)
[2022-03-07] MEDS: METOPROLOL TARTRATE 25 MG TABLET PO SCH ×2 (09:25→21:21)
[2022-03-07] MEDS: ROSUVASTATIN 20 MG TABLET PO SCH (09:25)
[2022-03-07] MEDS: PANTOPRAZOLE 40 MG VIAL IV SCH ×2 (09:25→21:22)
[2022-03-07] MEDS: ASCORBIC ACID 500 MG TABLET PO SCH ×2 (09:25→21:21)
[2022-03-07] MEDS: INSULIN REGULAR 100 UNIT/ML SUBCUT SCH ×4 (09:26→21:22)
[2022-03-07] MEDS: CHLORHEXIDINE 0.12% ORAL RINSE 60 ML BOTTLE SWISH/SPIT SCH ×2 (09:26→21:23)
[2022-03-07] MEDS: FERROUS SULFATE 325 MG TABLET PO SCH (09:29)
[2022-03-07] MEDS ORDERED: SIMETHICONE CHEW 125 MG TABLET PO PRN (10:51)
[2022-03-07] MEDS: DILTIAZEM INJ 100 MG in SODIUM CHLORIDE 0.9% 100 ML IV SCH (15:35)
[2022-03-07] MEDS: INSULIN GLARGINE 100 UNIT/ML SUBCUT SCH (21:23)
[2022-03-08] MEDS: oxyCODONE/ACETAMINOPHEN 5-325 MG TABLET PO PRN ×3 (04:13→18:38)
[2022-03-08 05:03] LABS: Albumin 2.7 G/DL (3.4-5.0); Bilirubin,Total 0.8 MG/DL (0.20-1.00); Calcium 8.4 MG/DL (8.5-10.1); Osmolality,Calculated 275.8 MOS/KG (273-304); Potassium 3.8 MMOL/L (3.5-5.1); Total Protein 5.9 G/DL (6.4-8.2)
[2022-03-08] MEDS: DILTIAZEM INJ 100 MG in SODIUM CHLORIDE 0.9% 100 ML IV SCH (06:23)
[2022-03-08] MEDS: POLYETHYLENE GLYCOL POWDER 17 GM PACK PO SCH (10:32)
[2022-03-08] MEDS: DOCUSATE SODIUM 100 MG CAPSULE PO SCH (10:33)
[2022-03-08] MEDS: ASPIRIN EC 81 MG TABLET PO SCH (10:33)
[2022-03-08] MEDS: ROSUVASTATIN 20 MG TABLET PO SCH (10:33)
[2022-03-08] MEDS: AMIODARONE 200 MG TABLET PO SCH ×2 (10:33→20:57)
[2022-03-08] MEDS: METOPROLOL TARTRATE 25 MG TABLET PO SCH ×2 (10:33→20:57)
[2022-03-08] MEDS: INSULIN REGULAR 100 UNIT/ML SUBCUT SCH ×4 (10:34→20:57)
[2022-03-08] MEDS: ASCORBIC ACID 500 MG TABLET PO SCH ×2 (10:34→20:57)
[2022-03-08] MEDS: CHLORHEXIDINE 0.12% ORAL RINSE 60 ML BOTTLE SWISH/SPIT SCH ×2 (10:34→20:57)
[2022-03-08] MEDS: FERROUS SULFATE 325 MG TABLET PO SCH (10:34)
[2022-03-08] MEDS: PANTOPRAZOLE 40 MG VIAL IV SCH ×2 (10:34→20:57)
[2022-03-08] MEDS: DOCUSATE SODIUM 100 MG/10 ML UDCUP PO SCH ×2 (12:05→20:57)
[2022-03-08] MEDS: INSULIN GLARGINE 100 UNIT/ML SUBCUT SCH (20:57)
[2022-03-09] MEDS: oxyCODONE/ACETAMINOPHEN 5-325 MG TABLET PO PRN ×3 (00:52→21:02)
[2022-03-09 04:53] LABS: Basophils % 0.3 % (0.0-0.8); Eosinophils # 0.2 10*3/uL (0.0-0.87); Hematocrit 28.2 VOL% (35.7-47.0); Immature Granulocytes % 0.8 %; Immature Granulocytes Absolute 0.05 #; Lymphocytes # 1.6 10*3/uL (1.4-4.0); Lymphocytes % 24.5 % (21.3-54.2); Mean Corpuscular HGB Conc 31.9 GM/DL (32-36); Mean Platelet Volume 11.6 FL (9.6-12.0); Monocytes # 0.7 10*3/uL (0.11-0.8); Monocytes % 10.3 % (1.7-12.7); Neutrophils % 61.1 % (38.7-73.9); Platelet Count 88 T/CUMM (130-400); Red Cell Distribution Width 17.5 % (9.3-17.3); White Blood Count 6.3 T/CUMM (4-12)
[2022-03-09 05:29] LABS: Alanine Aminotransferase 39 U/L (13-56); Albumin 2.6 G/DL (3.4-5.0); Alkaline Phosphatase 49 U/L (45-117); Aspartate Amino Transferase 50 U/L (0-37); Bilirubin,Indirect 0.5 MG/DL (0.0-1.0); Blood Urea Nitrogen 12 MG/DL (7-18); Calcium 8.1 MG/DL (8.5-10.1); Carbon Dioxide 28 MMOL/L (21-32); Chloride 105 MMOL/L (98-107); Glucose 139 MG/DL (74-106); Osmolality,Calculated 276.7 MOS/KG (273-304); Potassium 3.7 MMOL/L (3.5-5.1); Sodium 138 MMOL/L (136-145); Total Protein 5.9 G/DL (6.4-8.2)
[2022-03-09] MEDS: DILTIAZEM INJ 100 MG in SODIUM CHLORIDE 0.9% 100 ML IV SCH (05:31)
[2022-03-09 05:49] LABS: Anisocytosis 1+; Platelet Estimate Decreased
[2022-03-09] MEDS: INSULIN REGULAR 100 UNIT/ML SUBCUT SCH ×4 (08:12→21:04)
[2022-03-09] MEDS: POLYETHYLENE GLYCOL POWDER 17 GM PACK PO SCH (10:18)
[2022-03-09] MEDS: PANTOPRAZOLE 40 MG VIAL IV SCH ×2 (10:19→21:05)
[2022-03-09] MEDS: FERROUS SULFATE 325 MG TABLET PO SCH (10:20)
[2022-03-09] MEDS: ASPIRIN EC 81 MG TABLET PO SCH (10:20)
[2022-03-09] MEDS: DOCUSATE SODIUM 100 MG CAPSULE PO SCH (10:20)
[2022-03-09] MEDS: AMIODARONE 200 MG TABLET PO SCH ×2 (10:20→21:02)
[2022-03-09] MEDS: ASCORBIC ACID 500 MG TABLET PO SCH ×2 (10:20→21:03)
[2022-03-09] MEDS: ROSUVASTATIN 20 MG TABLET PO SCH (10:20)
[2022-03-09] MEDS: METOPROLOL TARTRATE 25 MG TABLET PO SCH ×2 (10:21→21:02)
[2022-03-09] MEDS: CHLORHEXIDINE 0.12% ORAL RINSE 60 ML BOTTLE SWISH/SPIT SCH ×2 (10:21→21:05)
[2022-03-09] MEDS: DOCUSATE SODIUM 100 MG/10 ML UDCUP PO SCH ×2 (10:54→21:04)
[2022-03-09] MEDS: ACETAMINOPHEN 325 MG TABLET PO PRN (16:28)
[2022-03-09] MEDS: INSULIN GLARGINE 100 UNIT/ML SUBCUT SCH (21:04)
[2022-03-10 05:06] LABS: Basophils % 0.4 % (0.0-0.8); Eosinophils # 0.2 10*3/uL (0.0-0.87); Hematocrit 30.9 VOL% (35.7-47.0); Hemoglobin 9.7 GM/DL (12.0-16.0); Immature Granulocytes % 0.9 %; Immature Granulocytes Absolute 0.07 #; Lymphocytes # 1.7 10*3/uL (1.4-4.0); Lymphocytes % 22.4 % (21.3-54.2); Mean Corpuscular HGB Conc 31.4 GM/DL (32-36); Mean Corpuscular Volume 93.1 FL (87-102); Mean Platelet Volume 11.4 FL (9.6-12.0); Monocytes # 0.7 10*3/uL (0.11-0.8); Monocytes % 8.8 % (1.7-12.7); Neutrophils % 64.5 % (38.7-73.9); Platelet Count 111 T/CUMM (130-400); Red Blood Count 3.32 MC/CUMM (3.8-5.5); Red Cell Distribution Width 17.3 % (9.3-17.3); White Blood Count 7.4 T/CUMM (4-12)
[2022-03-10 05:31] LABS: Alanine Aminotransferase 36 U/L (13-56); Albumin 2.7 G/DL (3.4-5.0); Alkaline Phosphatase 58 U/L (45-117); Aspartate Amino Transferase 42 U/L (0-37); Bilirubin,Indirect 0.4 MG/DL (0.0-1.0); Blood Urea Nitrogen 12 MG/DL (7-18); Calcium 8.2 MG/DL (8.5-10.1); Carbon Dioxide 27 MMOL/L (21-32); Chloride 106 MMOL/L (98-107); Glucose 137 MG/DL (74-106); Osmolality,Calculated 278.5 MOS/KG (273-304); Potassium 3.9 MMOL/L (3.5-5.1); Sodium 139 MMOL/L (136-145); Total Protein 6.2 G/DL (6.4-8.2)
[2022-03-10] MEDS: DILTIAZEM INJ 100 MG in SODIUM CHLORIDE 0.9% 100 ML IV SCH (05:41)
[2022-03-10] MEDS: INSULIN REGULAR 100 UNIT/ML SUBCUT SCH ×4 (08:18→21:40)
[2022-03-10] MEDS ORDERED: KETOROLAC 30 MG/1 ML VIAL IV ONE (09:30)
[2022-03-10] MEDS: AMIODARONE 200 MG TABLET PO SCH ×2 (09:33→21:38)
[2022-03-10] MEDS: FERROUS SULFATE 325 MG TABLET PO SCH (09:33)
[2022-03-10] MEDS: MAGNESIUM OXIDE 400 MG TABLET PO SCH (09:34)
[2022-03-10] MEDS: ASCORBIC ACID 500 MG TABLET PO SCH ×2 (09:34→21:39)
[2022-03-10] MEDS: ASPIRIN EC 81 MG TABLET PO SCH (09:34)
[2022-03-10] MEDS: METOPROLOL TARTRATE 25 MG TABLET PO SCH ×2 (09:34→21:40)
[2022-03-10] MEDS: POTASSIUM CHLORIDE 20 MEQ TABLET PO PRN ×2 (09:34→11:32)
[2022-03-10] MEDS: ROSUVASTATIN 20 MG TABLET PO SCH (09:34)
[2022-03-10] MEDS: PANTOPRAZOLE 40 MG VIAL IV SCH ×2 (09:39→21:38)
[2022-03-10] MEDS: CHLORHEXIDINE 0.12% ORAL RINSE 60 ML BOTTLE SWISH/SPIT SCH ×2 (09:42→21:39)
[2022-03-10] MEDS: POLYETHYLENE GLYCOL POWDER 17 GM PACK PO SCH (09:43)
[2022-03-10] MEDS: DOCUSATE SODIUM 100 MG CAPSULE PO SCH (09:43)
[2022-03-10] MEDS: DOCUSATE SODIUM 100 MG/10 ML UDCUP PO SCH (11:17)
[2022-03-10] MEDS: ALUMINUM/MAGNES/SIMETH MAX STR 30 ML UDCUP PO PRN (11:35)
[2022-03-10] MEDS: INSULIN GLARGINE 100 UNIT/ML SUBCUT SCH (21:39)
[2022-03-10] MEDS: ACETAMINOPHEN 325 MG TABLET PO PRN (21:58)
[2022-03-11] MEDS: ALUMINUM/MAGNES/SIMETH MAX STR 30 ML UDCUP PO PRN (03:44)
[2022-03-11] MEDS: oxyCODONE/ACETAMINOPHEN 5-325 MG TABLET PO PRN (04:00)
[2022-03-11 05:05] LABS: Basophils % 0.4 % (0.0-0.8); Eosinophils # 0.2 10*3/uL (0.0-0.87); Eosinophils % 2.9 % (0.00-10.9); Hematocrit 28.1 VOL% (35.7-47.0); Immature Granulocytes % 0.5 %; Immature Granulocytes Absolute 0.03 #; Lymphocytes # 1.3 10*3/uL (1.4-4.0); Lymphocytes % 23.2 % (21.3-54.2); Mean Corpuscular Volume 91.2 FL (87-102); Mean Platelet Volume 11.5 FL (9.6-12.0); Monocytes # 0.6 10*3/uL (0.11-0.8); Monocytes % 11.3 % (1.7-12.7); Neutrophils % 61.7 % (38.7-73.9); Platelet Count 88 T/CUMM (130-400); Red Blood Count 3.08 MC/CUMM (3.8-5.5); Red Cell Distribution Width 17.1 % (9.3-17.3); White Blood Count 5.5 T/CUMM (4-12)
[2022-03-11 05:16] LABS: Calcium 8.2 MG/DL (8.5-10.1); Osmolality,Calculated 278.5 MOS/KG (273-304)
[2022-03-11 05:25] LABS: Platelet Estimate Decreased
[2022-03-11] MEDS: METOPROLOL TARTRATE 25 MG TABLET PO SCH (08:26)
[2022-03-11] MEDS: ROSUVASTATIN 20 MG TABLET PO SCH (08:27)
[2022-03-11] MEDS: AMIODARONE 200 MG TABLET PO SCH (08:27)
[2022-03-11] MEDS: MAGNESIUM OXIDE 400 MG TABLET PO SCH (08:27)
[2022-03-11] MEDS: ASPIRIN EC 81 MG TABLET PO SCH (08:27)
[2022-03-11] MEDS: DOCUSATE SODIUM 100 MG CAPSULE PO SCH (08:27)
[2022-03-11] MEDS: FERROUS SULFATE 325 MG TABLET PO SCH (08:28)
[2022-03-11] MEDS: INSULIN REGULAR 100 UNIT/ML SUBCUT SCH ×2 (08:28→12:47)
[2022-03-11] MEDS: ASCORBIC ACID 500 MG TABLET PO SCH (08:28)
[2022-03-11] MEDS: POLYETHYLENE GLYCOL POWDER 17 GM PACK PO SCH (08:29)
[2022-03-11] MEDS: CHLORHEXIDINE 0.12% ORAL RINSE 60 ML BOTTLE SWISH/SPIT SCH (08:29)
[2022-03-11] MEDS ORDERED: PANTOPRAZOLE 40 MG TABLET PO SCH (09:00)
[2022-03-11 12:49] VITALS: BP 125/75
== END 2022-03-11 13:05 | disposition home health service (06) | DRG 233 ==
LOC: N.EDINP 11:00 → N.ED 11:00 → N.EDINP 16:10 → N.CC 17:04 → N.CVR 03-04 09:48 → N.ICU 03-05 12:03 → N.TELES 03-06 18:54
PROVIDERS: ADMIT Internal Medicine; ATTEND Family Medicine

== ENCOUNTER 2022-05-05 07:22 | Inpatient (IN) ==
[2022-05-05] MEDS ORDERED: ASPIRIN 325 MG TABLET PO STA (07:53)
[2022-05-05 08:34] LABS: Basophils % 0.4 % (0.0-0.8); Eosinophils # 0.1 10*3/uL (0.0-0.87); Eosinophils % 1.2 % (0.00-10.9); Hematocrit 36.4 VOL% (35.7-47.0); Hemoglobin 11.3 GM/DL (12.0-16.0); Immature Granulocytes % 0.2 %; Immature Granulocytes Absolute 0.01 #; Lymphocytes # 0.7 10*3/uL (1.4-4.0); Lymphocytes % 14.9 % (21.3-54.2); Mean Platelet Volume 11.9 FL (9.6-12.0); Monocytes # 0.4 10*3/uL (0.11-0.8); Monocytes % 8.7 % (1.7-12.7); Neutrophils % 74.6 % (38.7-73.9); Red Blood Count 4.28 MC/CUMM (3.8-5.5); White Blood Count 4.8 T/CUMM (4-12)
[2022-05-05 08:37] LABS: Platelet Count 82 T/CUMM (130-400)
[2022-05-05 08:59] LABS: Albumin 3.6 G/DL (3.4-5.0); Bilirubin,Total 0.6 MG/DL (0.20-1.00); Calcium 8.7 MG/DL (8.5-10.1); Potassium 3.5 MMOL/L (3.5-5.1); Total Protein 7.3 G/DL (6.4-8.2)
[2022-05-05] MEDS ORDERED: FUROSEMIDE 40 MG/4 ML VIAL ONE (09:21)
[2022-05-05] MEDS ORDERED: FUROSEMIDE 40 MG/4 ML VIAL IV STA (09:21)
[2022-05-05] MEDS ORDERED: ASCORBIC ACID 500 MG TABLET PO SCH (09:42)
[2022-05-05] MEDS ORDERED: POTASSIUM CHLORIDE 20 MEQ TABLET PO STA (09:55)
[2022-05-05] MEDS ORDERED: cloNIDine 0.1 MG TABLET PO STA (13:02)
[2022-05-05] MEDS ORDERED: DEXTROSE 10% 250 ML BAG IV PRN (13:41)
[2022-05-05] MEDS ORDERED: GLUCAGON 1 MG VIAL IM PRN (13:41)
[2022-05-05] MEDS: METOPROLOL TARTRATE 25 MG TABLET PO SCH ×2 (15:31→20:28)
[2022-05-05] MEDS: FUROSEMIDE 40 MG/4 ML VIAL IV SCH (15:32)
[2022-05-05] MEDS: INSULIN LISPRO 100 UNIT/ML SUBCUT SCH ×2 (15:49→21:50)
[2022-05-05] MEDS ORDERED: FUROSEMIDE 40 MG/4 ML VIAL IV SCH (16:00)
[2022-05-05] MEDS: ASCORBIC ACID 500 MG TABLET PO SCH (20:28)
[2022-05-05] MEDS: DOCUSATE SODIUM 100 MG CAPSULE PO SCH (20:28)
[2022-05-05] MEDS ORDERED: METOPROLOL TARTRATE 25 MG TABLET PO SCH (21:00)
[2022-05-06] MEDS: ACETAMINOPHEN 325 MG TABLET PO PRN (03:48)
[2022-05-06 04:36] LABS: Basophils % 0.3 % (0.0-0.8); Eosinophils # 0.1 10*3/uL (0.0-0.87); Hematocrit 33.9 VOL% (35.7-47.0); Hemoglobin 10.4 GM/DL (12.0-16.0); Immature Granulocytes % 0.6 %; Immature Granulocytes Absolute 0.02 #; Lymphocytes # 0.8 10*3/uL (1.4-4.0); Lymphocytes % 23.4 % (21.3-54.2); Mean Corpuscular HGB Conc 30.7 GM/DL (32-36); Mean Corpuscular Volume 86.3 FL (87-102); Mean Platelet Volume 10.6 FL (9.6-12.0); Monocytes # 0.4 10*3/uL (0.11-0.8); Monocytes % 12.9 % (1.7-12.7); Neutrophils % 60.8 % (38.7-73.9); Platelet Count 86 T/CUMM (130-400); Red Blood Count 3.93 MC/CUMM (3.8-5.5); Red Cell Distribution Width 14.9 % (9.3-17.3); White Blood Count 3.4 T/CUMM (4-12)
[2022-05-06 04:56] LABS: Platelet Estimate Decreased
[2022-05-06 05:00] LABS: Potassium 3.2 MMOL/L (3.5-5.1)
[2022-05-06] MEDS: ROSUVASTATIN 20 MG TABLET PO SCH (08:20)
[2022-05-06] MEDS: VALSARTAN 80 MG TABLET PO SCH (08:20)
[2022-05-06] MEDS: POLYETHYLENE GLYCOL POWDER 17 GM PACK PO SCH (08:20)
[2022-05-06] MEDS: ASCORBIC ACID 500 MG TABLET PO SCH ×2 (08:20→23:42)
[2022-05-06] MEDS: DOCUSATE SODIUM 100 MG CAPSULE PO SCH ×2 (08:21→21:15)
[2022-05-06] MEDS: FUROSEMIDE 40 MG/4 ML VIAL IV SCH ×2 (08:21→15:50)
[2022-05-06] MEDS: PANTOPRAZOLE 40 MG TABLET PO SCH (08:22)
[2022-05-06] MEDS: METOPROLOL TARTRATE 25 MG TABLET PO SCH ×2 (08:22→21:14)
[2022-05-06] MEDS: ASPIRIN EC 81 MG TABLET PO SCH (08:29)
[2022-05-06] MEDS: INSULIN LISPRO 100 UNIT/ML SUBCUT SCH ×4 (08:30→21:15)
[2022-05-06] MEDS ORDERED: MAGNESIUM SULF RIDER 2 GM/50 ML PREMIX IV ONE (09:00)
[2022-05-06] MEDS ORDERED: ASPIRIN EC 81 MG TABLET PO SCH (09:00)
[2022-05-06] MEDS ORDERED: POTASSIUM CHLORIDE 20 MEQ TABLET PO ONE (09:00)
[2022-05-06] MEDS ORDERED: ROSUVASTATIN 20 MG TABLET PO SCH (09:00)
[2022-05-06] MEDS: ONDANSETRON 4 MG/2 ML VIAL IV PRN (15:46)
[2022-05-07] MEDS: ONDANSETRON 4 MG/2 ML VIAL IV PRN (03:07)
[2022-05-07 05:59] LABS: Basophils % 0.3 % (0.0-0.8); Eosinophils # 0.1 10*3/uL (0.0-0.87); Eosinophils % 1.8 % (0.00-10.9); Hematocrit 35.7 VOL% (35.7-47.0); Hemoglobin 10.8 GM/DL (12.0-16.0); Immature Granulocytes % 0.3 %; Immature Granulocytes Absolute 0.01 #; Lymphocytes % 28.3 % (21.3-54.2); Mean Corpuscular HGB Conc 30.3 GM/DL (32-36); Mean Corpuscular Volume 86.9 FL (87-102); Mean Platelet Volume 11.9 FL (9.6-12.0); Monocytes # 0.4 10*3/uL (0.11-0.8); Neutrophils % 56.3 % (38.7-73.9); Platelet Count 97 T/CUMM (130-400); Red Blood Count 4.11 MC/CUMM (3.8-5.5); White Blood Count 3.4 T/CUMM (4-12)
[2022-05-07 06:17] LABS: Platelet Estimate Decreased
[2022-05-07 06:18] LABS: Calcium 8.9 MG/DL (8.5-10.1); Osmolality,Calculated 281.1 MOS/KG (273-304); Potassium 3.3 MMOL/L (3.5-5.1)
[2022-05-07] MEDS: ACETAMINOPHEN 325 MG TABLET PO PRN ×2 (09:00→15:46)
[2022-05-07] MEDS: VALSARTAN 80 MG TABLET PO SCH (09:13)
[2022-05-07] MEDS: ASPIRIN EC 81 MG TABLET PO SCH (09:13)
[2022-05-07] MEDS: METOPROLOL TARTRATE 25 MG TABLET PO SCH ×2 (09:13→21:04)
[2022-05-07] MEDS: PANTOPRAZOLE 40 MG TABLET PO SCH (09:13)
[2022-05-07] MEDS: POLYETHYLENE GLYCOL POWDER 17 GM PACK PO SCH (09:13)
[2022-05-07] MEDS: INSULIN LISPRO 100 UNIT/ML SUBCUT SCH ×4 (09:13→21:03)
[2022-05-07] MEDS: DOCUSATE SODIUM 100 MG CAPSULE PO SCH ×2 (09:13→21:04)
[2022-05-07] MEDS: FUROSEMIDE 40 MG/4 ML VIAL IV SCH ×2 (09:13→16:37)
[2022-05-07] MEDS: ROSUVASTATIN 20 MG TABLET PO SCH (09:13)
[2022-05-07] MEDS: ASCORBIC ACID 500 MG TABLET PO SCH ×2 (09:14→21:05)
[2022-05-07] MEDS ORDERED: POTASSIUM CHLORIDE 20 MEQ TABLET PO ONE (09:20)
[2022-05-08 05:54] LABS: Basophils % 0.3 % (0.0-0.8); Eosinophils # 0.1 10*3/uL (0.0-0.87); Eosinophils % 1.8 % (0.00-10.9); Hematocrit 34.7 VOL% (35.7-47.0); Hemoglobin 10.7 GM/DL (12.0-16.0); Immature Granulocytes % 0.3 %; Immature Granulocytes Absolute 0.01 #; Lymphocytes # 0.8 10*3/uL (1.4-4.0); Lymphocytes % 22.8 % (21.3-54.2); Mean Corpuscular HGB Conc 30.8 GM/DL (32-36); Mean Corpuscular Volume 86.1 FL (87-102); Mean Platelet Volume 11.1 FL (9.6-12.0); Monocytes # 0.4 10*3/uL (0.11-0.8); Neutrophils % 62.8 % (38.7-73.9); Platelet Count 86 T/CUMM (130-400); Red Blood Count 4.03 MC/CUMM (3.8-5.5); Red Cell Distribution Width 14.6 % (9.3-17.3); White Blood Count 3.4 T/CUMM (4-12)
[2022-05-08 06:12] LABS: Calcium 9.1 MG/DL (8.5-10.1); Osmolality,Calculated 279.4 MOS/KG (273-304)
[2022-05-08 06:13] LABS: Hypochromia Slight; Microcytosis Slight; Platelet Estimate Decreased
[2022-05-08] MEDS ORDERED: MAGNESIUM SULF RIDER 2 GM/50 ML PREMIX IV ONE (07:44)
[2022-05-08] MEDS: INSULIN LISPRO 100 UNIT/ML SUBCUT SCH (07:59)
[2022-05-08] MEDS ORDERED: POTASSIUM CHLORIDE 20 MEQ TABLET PO SCH (08:00)
[2022-05-08 08:01] VITALS: BP 141/70
[2022-05-08] MEDS: POLYETHYLENE GLYCOL POWDER 17 GM PACK PO SCH (08:07)
[2022-05-08] MEDS: FUROSEMIDE 40 MG/4 ML VIAL IV SCH (08:08)
[2022-05-08] MEDS: VALSARTAN 80 MG TABLET PO SCH (08:08)
[2022-05-08] MEDS: ROSUVASTATIN 20 MG TABLET PO SCH (08:09)
[2022-05-08] MEDS: ASPIRIN EC 81 MG TABLET PO SCH (08:09)
[2022-05-08] MEDS: METOPROLOL TARTRATE 25 MG TABLET PO SCH (08:09)
[2022-05-08] MEDS: DOCUSATE SODIUM 100 MG CAPSULE PO SCH (08:10)
[2022-05-08] MEDS: ASCORBIC ACID 500 MG TABLET PO SCH (08:10)
[2022-05-08] MEDS: PANTOPRAZOLE 40 MG TABLET PO SCH (08:10)
== END 2022-05-08 10:50 | disposition home or self-care (01) | DRG 291 ==
LOC: N.EDINP 07:22 → N.ED 07:22 → N.2W 13:30
PROVIDERS: ADMIT Family Medicine; ATTEND Family Medicine

== ENCOUNTER 2022-07-08 09:41 | Observation (INO) ==
[2022-07-08] MEDS ORDERED: ALUM/MAG/SIMETH/LIDO VISC 1:1 30 ML BOTTLE PO STA (10:06)
[2022-07-08] MEDS ORDERED: ASPIRIN 325 MG TABLET PO STA (10:06)
[2022-07-08 10:16] LABS: Basophils % 0.2 % (0.0-0.8); Eosinophils % 0.6 % (0.00-10.9); Hematocrit 41.3 VOL% (35.7-47.0); Immature Granulocytes % 0.2 %; Immature Granulocytes Absolute 0.01 #; Lymphocytes # 0.8 10*3/uL (1.4-4.0); Lymphocytes % 16.4 % (21.3-54.2); Mean Corpuscular HGB Conc 31.5 GM/DL (32-36); Mean Corpuscular Volume 83.3 FL (87-102); Mean Platelet Volume 12.3 FL (9.6-12.0); Monocytes # 0.4 10*3/uL (0.11-0.8); Monocytes % 7.8 % (1.7-12.7); Neutrophils % 74.8 % (38.7-73.9); Red Blood Count 4.96 MC/CUMM (3.8-5.5); Red Cell Distribution Width 19.3 % (9.3-17.3)
[2022-07-08 10:32] LABS: Platelet Count 85 T/CUMM (130-400)
[2022-07-08 10:56] LABS: Bilirubin,Total 0.5 MG/DL (0.20-1.00); Calcium 9.1 MG/DL (8.5-10.1); Osmolality,Calculated 280.4 MOS/KG (273-304); Potassium 3.8 MMOL/L (3.5-5.1); Total Protein 7.4 G/DL (6.4-8.2)
[2022-07-08] MEDS ORDERED: MORPHINE 2 MG/1 ML SYRINGE IV STA (12:39)
[2022-07-08] MEDS ORDERED: ONDANSETRON 4 MG/2 ML VIAL IV STA (12:40)
[2022-07-08] MEDS ORDERED: SIMETHICONE CHEW 125 MG TABLET PO PRN (14:36)
[2022-07-08] MEDS ORDERED: ONDANSETRON 4 MG/2 ML VIAL IV PRN (14:36)
[2022-07-08] MEDS ORDERED: LACTULOSE 20 GM/30 ML UDCUP PO PRN (14:36)
[2022-07-08] MEDS ORDERED: BISACODYL 5 MG TABLET PO PRN (14:36)
[2022-07-08] MEDS ORDERED: ALUMINUM/MAGNES/SIMETH MAX STR 30 ML UDCUP PO PRN (14:36)
[2022-07-08] MEDS ORDERED: GLUCAGON 1 MG VIAL IM PRN (15:14)
[2022-07-08] MEDS ORDERED: BENZONATATE 100 MG CAPSULE PO PRN (16:03)
[2022-07-08] MEDS: MORPHINE 2 MG/1 ML SYRINGE IV PRN (16:03)
[2022-07-08] MEDS: ACETAMINOPHEN 325 MG TABLET PO PRN (16:13)
[2022-07-08] MEDS: INSULIN LISPRO 100 UNIT/ML SUBCUT SCH ×2 (18:18→20:23)
[2022-07-08] MEDS: OXYBUTYNIN 5 MG TABLET PO SCH (20:22)
[2022-07-08] MEDS: ZALEPLON 5 MG CAPSULE PO PRN (20:45)
[2022-07-08] MEDS: METOPROLOL TARTRATE 25 MG TABLET PO SCH (20:45)
[2022-07-08] MEDS: PANTOPRAZOLE 40 MG TABLET PO SCH (20:45)
[2022-07-08] MEDS: ESCITALOPRAM 10 MG TABLET PO SCH (21:03)
[2022-07-09] MEDS: ACETAMINOPHEN 325 MG TABLET PO PRN (05:00)
[2022-07-09] MEDS: CALCIUM CARBONATE CHEW 500 MG TABLET PO PRN ×2 (05:22→21:16)
[2022-07-09] MEDS: LEVOTHYROXINE 50 MCG TABLET PO SCH ×2 (05:43→12:55)
[2022-07-09 05:46] LABS: Basophils % 0.3 % (0.0-0.8); Hematocrit 39.3 VOL% (35.7-47.0); Hemoglobin 12.1 GM/DL (12.0-16.0); Lymphocytes # 0.8 10*3/uL (1.4-4.0); Mean Corpuscular HGB Conc 30.8 GM/DL (32-36); Mean Corpuscular Volume 85.2 FL (87-102); Mean Platelet Volume 11.5 FL (9.6-12.0); Monocytes # 0.3 10*3/uL (0.11-0.8); Monocytes % 9.5 % (1.7-12.7); Neutrophils % 62.2 % (38.7-73.9); Platelet Count 68 T/CUMM (130-400); Red Blood Count 4.61 MC/CUMM (3.8-5.5); Red Cell Distribution Width 19.2 % (9.3-17.3)
[2022-07-09 06:01] LABS: Calcium 9.2 MG/DL (8.5-10.1); Osmolality,Calculated 282.1 MOS/KG (273-304); Risk Ratio 2.04; VLDL Cholesterol 19.8 MG/DL
[2022-07-09 06:06] LABS: Hypochromia Slight; Microcytosis Slight; Platelet Estimate Decreased
[2022-07-09] MEDS ORDERED: SODIUM CHLORIDE 0.9% 1,000 ML IV SCH (06:30)
[2022-07-09] MEDS: INSULIN LISPRO 100 UNIT/ML SUBCUT SCH ×4 (07:34→21:17)
[2022-07-09] MEDS ORDERED: DIAZEPAM 5 MG TABLET ONE (07:38)
[2022-07-09] MEDS ORDERED: diphenhydrAMINE CAP 25 MG CAPSULE ONE (07:38)
[2022-07-09] MEDS ORDERED: HEPARIN/NACL 0.9% 2 UNITS/ML 2,000 UNIT/1,000 ML BAG IV ONE (07:50)
[2022-07-09] MEDS ORDERED: NITROGLYCERIN DRIP 50 MG/250 ML BOTTLE IV ONE (07:50)
[2022-07-09] MEDS ORDERED: VERAPAMIL 5 MG/2 ML VIAL ONE (07:50)
[2022-07-09] MEDS ORDERED: diphenhydrAMINE CAP 25 MG CAPSULE PO ONE (08:00)
[2022-07-09] MEDS ORDERED: DIAZEPAM 5 MG TABLET PO ONE (08:00)
[2022-07-09] MEDS ORDERED: MIDAZOLAM 2 MG/2 ML VIAL ONE ×2 (08:16→08:54)
[2022-07-09] MEDS ORDERED: ASPIRIN 325 MG TABLET ONE (08:16)
[2022-07-09] MEDS ORDERED: fentaNYL 100 MCG/2 ML VIAL ONE (08:16)
[2022-07-09] MEDS ORDERED: HEPARIN 5,000 UNIT/1 ML VIAL ONE (08:25)
[2022-07-09] MEDS ORDERED: HEPARIN/NACL 0.9% 2 UNITS/ML 1,000 UNIT/500 ML BAG IV ONE (08:50)
[2022-07-09] MEDS ORDERED: PANTOPRAZOLE 40 MG TABLET PO SCH (09:00)
[2022-07-09] MEDS ORDERED: ESCITALOPRAM 10 MG TABLET PO SCH (09:00)
[2022-07-09] MEDS ORDERED: CLOPIDOGREL 300 MG TABLET ONE (09:09)
[2022-07-09] MEDS: DOCUSATE SODIUM 100 MG CAPSULE PO SCH (10:07)
[2022-07-09] MEDS: OXYBUTYNIN 5 MG TABLET PO SCH ×2 (10:07→21:16)
[2022-07-09] MEDS: MULTIVITAMIN (CENTRUM) TABLET PO SCH (10:07)
[2022-07-09] MEDS: METOPROLOL TARTRATE 25 MG TABLET PO SCH ×2 (10:07→21:17)
[2022-07-09] MEDS: SPIRONOLACTONE 25 MG TABLET PO SCH (10:07)
[2022-07-09] MEDS: ISOSORBIDE MONONITRATE 30 MG TABLET PO SCH (10:07)
[2022-07-09] MEDS: ROSUVASTATIN 20 MG TABLET PO SCH (10:08)
[2022-07-09] MEDS: PANTOPRAZOLE 40 MG TABLET PO SCH ×2 (10:08→21:16)
[2022-07-09] MEDS: VALSARTAN 80 MG TABLET PO SCH (10:08)
[2022-07-09] MEDS: ENOXAPARIN 40 MG/0.4 ML SYRINGE SUBCUT SCH (10:30)
[2022-07-09] MEDS: ASPIRIN EC 81 MG TABLET PO SCH (10:30)
[2022-07-09] MEDS: ESCITALOPRAM 10 MG TABLET PO SCH (21:16)
[2022-07-09] MEDS: ZALEPLON 5 MG CAPSULE PO PRN (21:27)
[2022-07-10 05:39] LABS: Basophils % 0.4 % (0.0-0.8); Eosinophils % 0.8 % (0.00-10.9); Hematocrit 33.9 VOL% (35.7-47.0); Hemoglobin 10.6 GM/DL (12.0-16.0); Immature Granulocytes % 0.4 %; Immature Granulocytes Absolute 0.01 #; Lymphocytes # 0.8 10*3/uL (1.4-4.0); Lymphocytes % 28.2 % (21.3-54.2); Mean Corpuscular HGB Conc 31.3 GM/DL (32-36); Mean Corpuscular Volume 84.8 FL (87-102); Mean Platelet Volume 12.2 FL (9.6-12.0); Monocytes # 0.3 10*3/uL (0.11-0.8); Monocytes % 10.5 % (1.7-12.7); Neutrophils % 59.7 % (38.7-73.9); Platelet Count 61 T/CUMM (130-400); Red Cell Distribution Width 19.1 % (9.3-17.3); White Blood Count 2.7 T/CUMM (4-12)
[2022-07-10 05:56] LABS: Osmolality,Calculated 282.1 MOS/KG (273-304); Potassium 3.6 MMOL/L (3.5-5.1)
[2022-07-10 05:58] LABS: Platelet Estimate Decreased
[2022-07-10] MEDS: LEVOTHYROXINE 50 MCG TABLET PO SCH (06:16)
[2022-07-10] MEDS: CALCIUM CARBONATE CHEW 500 MG TABLET PO PRN (06:49)
[2022-07-10] MEDS: INSULIN LISPRO 100 UNIT/ML SUBCUT SCH ×3 (07:48→16:07)
[2022-07-10] MEDS: ISOSORBIDE MONONITRATE 30 MG TABLET PO SCH (08:00)
[2022-07-10] MEDS: ROSUVASTATIN 20 MG TABLET PO SCH (08:01)
[2022-07-10] MEDS: MULTIVITAMIN (CENTRUM) TABLET PO SCH (08:01)
[2022-07-10] MEDS: VALSARTAN 80 MG TABLET PO SCH (08:01)
[2022-07-10] MEDS: ENOXAPARIN 40 MG/0.4 ML SYRINGE SUBCUT SCH (08:01)
[2022-07-10] MEDS: SPIRONOLACTONE 25 MG TABLET PO SCH (08:02)
[2022-07-10] MEDS: DOCUSATE SODIUM 100 MG CAPSULE PO SCH (08:02)
[2022-07-10] MEDS: METOPROLOL TARTRATE 25 MG TABLET PO SCH (08:02)
[2022-07-10] MEDS: ASPIRIN EC 81 MG TABLET PO SCH (08:02)
[2022-07-10] MEDS: PANTOPRAZOLE 40 MG TABLET PO SCH (08:02)
[2022-07-10] MEDS: OXYBUTYNIN 5 MG TABLET PO SCH (08:07)
[2022-07-10] MEDS ORDERED: ALUM/MAG/SIMETH/LIDO VISC 1:1 30 ML BOTTLE PO ONE (08:10)
[2022-07-10] MEDS ORDERED: CLOPIDOGREL 75 MG TABLET PO SCH (09:00)
[2022-07-10] MEDS ORDERED: RANOLAZINE 500 MG TABLET PO SCH (09:00)
[2022-07-10] MEDS: MORPHINE 2 MG/1 ML SYRINGE IV PRN ×2 (10:23→16:53)
[2022-07-10 16:07] VITALS: BP 167/70
== END 2022-07-10 17:30 | disposition hospice, home (50) ==
LOC: N.EDINP 09:41 → N.ED 09:41 → N.TELES 17:30
PROVIDERS: ADMIT Internal Medicine Cardiovascular Disease; ATTEND Internal Medicine Cardiovascular Disease

== ENCOUNTER 2022-07-22 23:25 | Observation (INO) ==
[2022-07-22] MEDS ORDERED: NITROGLYCERIN 2% OINT 1 INCH/GM PACK TOP STA (23:47)
[2022-07-22] MEDS ORDERED: ALUM/MAG/SIMETH/LIDO VISC 1:1 30 ML BOTTLE PO STA (23:47)
[2022-07-22] MEDS ORDERED: ASPIRIN 325 MG TABLET PO STA (23:47)
[2022-07-22] MEDS ORDERED: ONDANSETRON 4 MG/2 ML VIAL IV STA (23:47)
[2022-07-22] MEDS ORDERED: MORPHINE 2 MG/1 ML SYRINGE IV STA (23:47)
[2022-07-23 00:07] LABS: INR 1.1; PT Patient Result 12.2 SECS (10.1-12.1)
[2022-07-23 00:13] LABS: Albumin 4.5 G/DL (3.4-5.0); Bilirubin,Total 0.7 MG/DL (0.20-1.00); Calcium 9.5 MG/DL (8.5-10.1); Osmolality,Calculated 276.5 MOS/KG (273-304); Potassium 3.5 MMOL/L (3.5-5.1); Total Protein 8.2 G/DL (6.4-8.2)
[2022-07-23 00:42] LABS: Basophils % 0.3 % (0.0-0.8); Eosinophils # 0.1 10*3/uL (0.0-0.87); Eosinophils % 1.3 % (0.00-10.9); Hematocrit 41.9 VOL% (35.7-47.0); Hemoglobin 13.6 GM/DL (12.0-16.0); Immature Granulocytes % 0.5 %; Immature Granulocytes Absolute 0.02 #; Lymphocytes # 0.8 10*3/uL (1.4-4.0); Lymphocytes % 21.3 % (21.3-54.2); Mean Corpuscular HGB Conc 32.5 GM/DL (32-36); Mean Corpuscular Volume 82.8 FL (87-102); Mean Platelet Volume 11.2 FL (9.6-12.0); Monocytes # 0.3 10*3/uL (0.11-0.8); Monocytes % 8.2 % (1.7-12.7); Neutrophils % 68.4 % (38.7-73.9); Platelet Count 72 T/CUMM (130-400); Red Blood Count 5.06 MC/CUMM (3.8-5.5); Red Cell Distribution Width 19.7 % (9.3-17.3); White Blood Count 3.9 T/CUMM (4-12)
[2022-07-23] MEDS ORDERED: GLUCAGON 1 MG VIAL IM PRN (02:40)
[2022-07-23] MEDS ORDERED: ONDANSETRON 4 MG/2 ML VIAL IV PRN (02:40)
[2022-07-23] MEDS ORDERED: MORPHINE 2 MG/1 ML SYRINGE IV PRN (02:40)
[2022-07-23] MEDS ORDERED: ACETAMINOPHEN 325 MG TABLET PO PRN (02:40)
[2022-07-23] MEDS ORDERED: DEXTROSE 10% 250 ML BAG IV PRN (02:46)
[2022-07-23] MEDS ORDERED: POLYETHYLENE GLYCOL POWDER 17 GM PACK PO PRN (03:15)
[2022-07-23] MEDS: SODIUM CHLORIDE 0.9% 1,000 ML IV SCH ×2 (03:28→19:38)
[2022-07-23 03:42] LABS: Basophils % 0.3 % (0.0-0.8); Eosinophils % 0.8 % (0.00-10.9); Hematocrit 37.8 VOL% (35.7-47.0); Hemoglobin 11.9 GM/DL (12.0-16.0); Immature Granulocytes % 0.3 %; Immature Granulocytes Absolute 0.01 #; Lymphocytes # 0.7 10*3/uL (1.4-4.0); Lymphocytes % 19.2 % (21.3-54.2); Mean Corpuscular HGB Conc 31.5 GM/DL (32-36); Mean Corpuscular Volume 83.6 FL (87-102); Mean Platelet Volume 10.8 FL (9.6-12.0); Monocytes # 0.4 10*3/uL (0.11-0.8); Monocytes % 12.3 % (1.7-12.7); Neutrophils % 67.1 % (38.7-73.9); Platelet Count 58 T/CUMM (130-400); Red Blood Count 4.52 MC/CUMM (3.8-5.5); Red Cell Distribution Width 19.3 % (9.3-17.3); White Blood Count 3.6 T/CUMM (4-12)
[2022-07-23 04:06] LABS: Albumin 3.9 G/DL (3.4-5.0); Bilirubin,Total 0.6 MG/DL (0.20-1.00); Calcium 9.4 MG/DL (8.5-10.1); Osmolality,Calculated 277.4 MOS/KG (273-304); Potassium 3.6 MMOL/L (3.5-5.1); Risk Ratio 1.82; Total Protein 7.3 G/DL (6.4-8.2); VLDL Cholesterol 18.8 MG/DL
[2022-07-23 04:08] LABS: Hypochromia Slight; Microcytosis Slight; Platelet Estimate Decreased
[2022-07-23] MEDS: LEVOTHYROXINE 50 MCG TABLET PO SCH (05:55)
[2022-07-23] MEDS: INSULIN REGULAR 100 UNIT/ML SUBCUT SCH ×3 (06:21→17:49)
[2022-07-23] MEDS ORDERED: KETOROLAC 15 MG/1 ML VIAL IV ONE (07:57)
[2022-07-23] MEDS ORDERED: PANTOPRAZOLE 40 MG VIAL IV SCH (09:00)
[2022-07-23] MEDS ORDERED: DOCUSATE SODIUM 100 MG CAPSULE PO SCH (09:00)
[2022-07-23] MEDS: OXYBUTYNIN 5 MG TABLET PO SCH ×2 (09:20→22:22)
[2022-07-23] MEDS: TICAGRELOR 90 MG TABLET PO SCH ×2 (09:20→22:20)
[2022-07-23] MEDS: ISOSORBIDE MONONITRATE 30 MG TABLET PO SCH (09:20)
[2022-07-23] MEDS: DOCUSATE SODIUM 100 MG CAPSULE PO SCH ×2 (09:20→22:24)
[2022-07-23] MEDS: ASPIRIN EC 81 MG TABLET PO SCH (09:20)
[2022-07-23] MEDS: ROSUVASTATIN 20 MG TABLET PO SCH (09:21)
[2022-07-23] MEDS: MULTIVITAMIN (CENTRUM) TABLET PO SCH (09:21)
[2022-07-23] MEDS: ESCITALOPRAM 10 MG TABLET PO SCH ×2 (09:21→22:20)
[2022-07-23] MEDS: PANTOPRAZOLE 40 MG TABLET PO SCH ×2 (09:21→22:20)
[2022-07-23] MEDS: METOPROLOL TARTRATE 25 MG TABLET PO SCH ×2 (09:21→22:23)
[2022-07-23] MEDS: SPIRONOLACTONE 25 MG TABLET PO SCH (09:21)
[2022-07-23] MEDS: VALSARTAN 80 MG TABLET PO SCH (09:21)
[2022-07-23] MEDS ORDERED: ALUM/MAG/SIMETH/LIDO VISC 1:1 30 ML BOTTLE PO ONE (16:04)
[2022-07-23] MEDS: sitaGLIPtin 25 MG TABLET PO SCH (17:48)
[2022-07-23] MEDS ORDERED: TEMAZEPAM 7.5 MG CAPSULE PO SCH (21:00)
[2022-07-24] MEDS: ALUMINUM/MAGNES/SIMETH MAX STR 30 ML UDCUP PO PRN ×3 (00:50→14:45)
[2022-07-24] MEDS: INSULIN REGULAR 100 UNIT/ML SUBCUT SCH ×3 (02:38→12:10)
[2022-07-24] MEDS: LEVOTHYROXINE 50 MCG TABLET PO SCH (05:51)
[2022-07-24] MEDS ORDERED: ALUM/MAG/SIMETH/LIDO VISC 1:1 30 ML BOTTLE PO ONE (08:02)
[2022-07-24] MEDS: OXYBUTYNIN 5 MG TABLET PO SCH (08:20)
[2022-07-24] MEDS: TICAGRELOR 90 MG TABLET PO SCH (08:20)
[2022-07-24] MEDS: DOCUSATE SODIUM 100 MG CAPSULE PO SCH (08:20)
[2022-07-24] MEDS: ISOSORBIDE MONONITRATE 30 MG TABLET PO SCH (08:21)
[2022-07-24] MEDS: MULTIVITAMIN (CENTRUM) TABLET PO SCH (08:21)
[2022-07-24] MEDS: ASPIRIN EC 81 MG TABLET PO SCH (08:21)
[2022-07-24] MEDS: SPIRONOLACTONE 25 MG TABLET PO SCH (08:21)
[2022-07-24] MEDS: ROSUVASTATIN 20 MG TABLET PO SCH (08:21)
[2022-07-24] MEDS: VALSARTAN 80 MG TABLET PO SCH (08:21)
[2022-07-24] MEDS: METOPROLOL TARTRATE 25 MG TABLET PO SCH (08:22)
[2022-07-24] MEDS: ESCITALOPRAM 10 MG TABLET PO SCH (08:24)
[2022-07-24] MEDS ORDERED: PANTOPRAZOLE 40 MG TABLET PO SCH (09:00)
[2022-07-24] MEDS: SODIUM CHLORIDE 0.9% 1,000 ML IV SCH (14:46)
[2022-07-24] MEDS ORDERED: ALUM/MAG/SIMETH/LIDO VISC 1:1 30 ML BOTTLE PO PRN ×2 (16:00→16:30)
[2022-07-24] MEDS: sitaGLIPtin 25 MG TABLET PO SCH (18:35)
[2022-07-24 18:46] VITALS: BP 152/75
[2022-07-24] MEDS ORDERED: FAMOTIDINE 20 MG TABLET PO SCH (21:00)
== END 2022-07-24 18:55 | disposition home health service (06) ==
LOC: N.EDINP 23:25 → N.ED 23:25 → N.TELES 07-23 01:32
PROVIDERS: ADMIT Family Medicine; ATTEND Family Medicine

== ENCOUNTER 2022-08-09 00:20 | Observation (INO) ==
[2022-08-09 00:49] LABS: Basophils % 0.4 % (0.0-0.8); Eosinophils # 0.1 10*3/uL (0.0-0.87); Eosinophils % 0.9 % (0.00-10.9); Hematocrit 38.5 VOL% (35.7-47.0); Hemoglobin 13.1 GM/DL (12.0-16.0); Immature Granulocytes % 0.4 %; Immature Granulocytes Absolute 0.02 #; Lymphocytes # 0.9 10*3/uL (1.4-4.0); Lymphocytes % 15.9 % (21.3-54.2); Mean Corpuscular Volume 81.4 FL (87-102); Mean Platelet Volume 10.5 FL (9.6-12.0); Monocytes # 0.5 10*3/uL (0.11-0.8); Monocytes % 9.8 % (1.7-12.7); Neutrophils % 72.6 % (38.7-73.9); Platelet Count 76 T/CUMM (130-400); Red Blood Count 4.73 MC/CUMM (3.8-5.5); Red Cell Distribution Width 18.8 % (9.3-17.3); White Blood Count 5.5 T/CUMM (4-12)
[2022-08-09 00:58] LABS: INR 1.1; PT Patient Result 11.9 SECS (10.1-12.1)
[2022-08-09 01:13] LABS: Platelet Estimate Decreased
[2022-08-09 01:14] LABS: Ovalocytes Slight
[2022-08-09 01:27] LABS: Albumin 4.1 G/DL (3.4-5.0); Bilirubin,Total 0.7 MG/DL (0.20-1.00); Calcium 9.3 MG/DL (8.5-10.1); Osmolality,Calculated 279.4 MOS/KG (273-304); Total Protein 7.6 G/DL (6.4-8.2)
[2022-08-09] MEDS ORDERED: LABETALOL 20 MG/4 ML SYRINGE IV STA (02:08)
[2022-08-09] MEDS ORDERED: ONDANSETRON 4 MG/2 ML VIAL IV PRN (02:29)
[2022-08-09] MEDS ORDERED: cloNIDine 0.1 MG TABLET PO PRN (02:59)
[2022-08-09] MEDS: PANTOPRAZOLE 40 MG TABLET PO SCH (08:37)
[2022-08-09] MEDS: HYDROmorphone 1 MG/1 ML SYRINGE IV PRN (08:38)
[2022-08-09] MEDS ORDERED: MAGNESIUM SULF RIDER 4 GM/100 ML PREMIX IV ONE (10:15)
[2022-08-09] MEDS ORDERED: POTASSIUM CHLORIDE 20 MEQ TABLET PO ONE (10:16)
[2022-08-09] MEDS ORDERED: RANOLAZINE 500 MG TABLET PO SCH (10:30)
[2022-08-09] MEDS ORDERED: ISOSORBIDE MONONITRATE 30 MG TABLET PO SCH (10:30)
[2022-08-09] MEDS: TICAGRELOR 90 MG TABLET PO SCH ×2 (10:53→20:59)
[2022-08-09] MEDS ORDERED: ISOSORBIDE MONONITRATE 30 MG TABLET PO ONE (11:34)
[2022-08-09] MEDS ORDERED: hydrALAZINE 20 MG/1 ML VIAL IV PRN (12:00)
[2022-08-09] MEDS: INSULIN REGULAR 100 UNIT/ML SUBCUT SCH ×3 (12:24→20:59)
[2022-08-09] MEDS: ASPIRIN EC 81 MG TABLET PO SCH (13:56)
[2022-08-09] MEDS: METOPROLOL TARTRATE 25 MG TABLET PO SCH ×2 (13:57→20:59)
[2022-08-09] MEDS: VALSARTAN 80 MG TABLET PO SCH (13:57)
[2022-08-09] MEDS: SPIRONOLACTONE 25 MG TABLET PO SCH (13:59)
[2022-08-09] MEDS: ROSUVASTATIN 20 MG TABLET PO SCH (13:59)
[2022-08-10 05:00] LABS: Basophils % 0.2 % (0.0-0.8); Eosinophils # 0.1 10*3/uL (0.0-0.87); Eosinophils % 1.1 % (0.00-10.9); Hematocrit 37.2 VOL% (35.7-47.0); Hemoglobin 12.2 GM/DL (12.0-16.0); Immature Granulocytes % 0.9 %; Immature Granulocytes Absolute 0.04 #; Lymphocytes # 0.8 10*3/uL (1.4-4.0); Lymphocytes % 17.3 % (21.3-54.2); Mean Corpuscular HGB Conc 32.8 GM/DL (32-36); Mean Corpuscular Volume 84.9 FL (87-102); Mean Platelet Volume 10.8 FL (9.6-12.0); Monocytes # 0.6 10*3/uL (0.11-0.8); Monocytes % 12.8 % (1.7-12.7); Neutrophils % 67.7 % (38.7-73.9); Platelet Count 72 T/CUMM (130-400); Red Blood Count 4.38 MC/CUMM (3.8-5.5); Red Cell Distribution Width 19.6 % (9.3-17.3); White Blood Count 4.5 T/CUMM (4-12)
[2022-08-10 05:41] LABS: Calcium 9.3 MG/DL (8.5-10.1); Osmolality,Calculated 280.3 MOS/KG (273-304); Potassium 3.6 MMOL/L (3.5-5.1)
[2022-08-10 05:54] LABS: Hypochromia Slight; Microcytosis Slight; Platelet Estimate Decreased
[2022-08-10] MEDS: HYDROmorphone 1 MG/1 ML SYRINGE IV PRN ×2 (07:28→23:07)
[2022-08-10] MEDS: INSULIN REGULAR 100 UNIT/ML SUBCUT SCH ×4 (08:46→20:50)
[2022-08-10] MEDS: ROSUVASTATIN 20 MG TABLET PO SCH (09:05)
[2022-08-10] MEDS: ASPIRIN EC 81 MG TABLET PO SCH (09:05)
[2022-08-10] MEDS: VALSARTAN 80 MG TABLET PO SCH (09:05)
[2022-08-10] MEDS: SPIRONOLACTONE 25 MG TABLET PO SCH (09:06)
[2022-08-10] MEDS: TICAGRELOR 90 MG TABLET PO SCH ×2 (09:06→22:02)
[2022-08-10] MEDS: ISOSORBIDE MONONITRATE 60 MG TABLET PO SCH (09:06)
[2022-08-10] MEDS: METOPROLOL TARTRATE 25 MG TABLET PO SCH ×2 (09:06→22:02)
[2022-08-10] MEDS: PANTOPRAZOLE 40 MG TABLET PO SCH (09:06)
[2022-08-10] MEDS ORDERED: NITROGLYCERIN SL 0.4 MG TABLET SL ONE (09:10)
[2022-08-10] MEDS: NITROGLYCERIN SL 0.4 MG TABLET SL PRN ×2 (09:12→09:17)
[2022-08-10] MEDS ORDERED: ALUM/MAG/SIMETH/LIDO VISC 1:1 30 ML BOTTLE PO ONE (09:24)
[2022-08-10] MEDS ORDERED: MORPHINE 2 MG/1 ML SYRINGE IV ONE (09:26)
[2022-08-10] MEDS ORDERED: NITROGLYCERIN 2% OINT 1 INCH/GM PACK TOP ONE (10:09)
[2022-08-10] MEDS ORDERED: NITROGLYCERIN 2% OINT 1 INCH/GM PACK TOP SCH (10:30)
[2022-08-10] MEDS: ENOXAPARIN 60 MG/0.6 ML SYRINGE SUBCUT SCH ×2 (12:00→23:07)
[2022-08-10] MEDS ORDERED: SODIUM CHLORIDE 0.9% 1,000 ML IV SCH (12:00)
[2022-08-10] MEDS: NITROGLYCERIN 2% OINT 1 INCH/GM PACK TOP SCH ×2 (15:54→22:06)
[2022-08-11] MEDS: NITROGLYCERIN 2% OINT 1 INCH/GM PACK TOP SCH (03:57)
[2022-08-11 04:53] LABS: Basophils % 0.6 % (0.0-0.8); Eosinophils # 0.1 10*3/uL (0.0-0.87); Eosinophils % 1.9 % (0.00-10.9); Hematocrit 37.1 VOL% (35.7-47.0); Immature Granulocytes % 0.3 %; Immature Granulocytes Absolute 0.01 #; Lymphocytes # 0.8 10*3/uL (1.4-4.0); Lymphocytes % 20.7 % (21.3-54.2); Mean Corpuscular HGB Conc 32.3 GM/DL (32-36); Mean Corpuscular Volume 84.9 FL (87-102); Mean Platelet Volume 10.8 FL (9.6-12.0); Monocytes # 0.4 10*3/uL (0.11-0.8); Monocytes % 11.6 % (1.7-12.7); Neutrophils % 64.9 % (38.7-73.9); Platelet Count 66 T/CUMM (130-400); Red Blood Count 4.37 MC/CUMM (3.8-5.5); Red Cell Distribution Width 19.2 % (9.3-17.3); White Blood Count 3.6 T/CUMM (4-12)
[2022-08-11 05:13] LABS: Hypochromia 1+; Microcytosis 1+
[2022-08-11 05:14] LABS: Platelet Estimate Decreased
[2022-08-11 05:22] LABS: Osmolality,Calculated 277.4 MOS/KG (273-304); Potassium 3.2 MMOL/L (3.5-5.1)
[2022-08-11] MEDS: TICAGRELOR 90 MG TABLET PO SCH ×2 (09:23→20:08)
[2022-08-11] MEDS: ASPIRIN EC 81 MG TABLET PO SCH (09:23)
[2022-08-11] MEDS: RANOLAZINE 500 MG TABLET PO SCH ×2 (09:23→20:08)
[2022-08-11] MEDS: POTASSIUM CHLORIDE 20 MEQ TABLET PO SCH (09:23)
[2022-08-11] MEDS: ISOSORBIDE MONONITRATE 60 MG TABLET PO SCH (09:23)
[2022-08-11] MEDS: METOPROLOL TARTRATE 50 MG TABLET PO SCH ×2 (09:23→20:08)
[2022-08-11] MEDS: ROSUVASTATIN 20 MG TABLET PO SCH (09:23)
[2022-08-11] MEDS: SPIRONOLACTONE 25 MG TABLET PO SCH (09:23)
[2022-08-11] MEDS: VALSARTAN 160 MG TABLET PO SCH (09:23)
[2022-08-11] MEDS: PANTOPRAZOLE 40 MG TABLET PO SCH (09:24)
[2022-08-11] MEDS: INSULIN REGULAR 100 UNIT/ML SUBCUT SCH ×4 (10:07→20:09)
[2022-08-11] MEDS ORDERED: DIAZEPAM 5 MG TABLET PO ONE (10:27)
[2022-08-11] MEDS ORDERED: HYDROmorphone 1 MG/1 ML SYRINGE IV ONE (11:41)
[2022-08-11 12:40] LABS: Bacteria,Urine Occasional /HPF (Few); Bilirubin,Urine Negative (Negative); Blood, Urine Negative (Negative); Glucose,Urine (UA) Negative (Negative); Ketones,Urine 5 mg/dL (Negative); Mucus,Urine Occasional /LPF (Occasional); Nitrite,Urine Negative (Negative); Protein,Urine 30 mg/dL (Negative); RBC,Urine 2 /HPF (0-4); Squamous Epithelial Cell,Urine Occasional /HPF (0-10); Urine Appearance Slightly Hazy (Clear); Urine Color Yellow (Yellow); Urine Specific Gravity 1.011 (1.001-1.035); Urine Urobilinogen < 2.0 eU/dL (<2.0)
[2022-08-11] MEDS: ENOXAPARIN 40 MG/0.4 ML SYRINGE SUBCUT SCH (20:09)
[2022-08-12 05:37] LABS: Basophils % 0.3 % (0.0-0.8); Eosinophils % 1.4 % (0.00-10.9); Hematocrit 38.5 VOL% (35.7-47.0); Hemoglobin 12.5 GM/DL (12.0-16.0); Immature Granulocytes % 0.3 %; Immature Granulocytes Absolute 0.01 #; Lymphocytes # 0.8 10*3/uL (1.4-4.0); Lymphocytes % 29.1 % (21.3-54.2); Mean Corpuscular HGB Conc 32.5 GM/DL (32-36); Mean Corpuscular Volume 85.2 FL (87-102); Monocytes # 0.3 10*3/uL (0.11-0.8); Neutrophils % 58.9 % (38.7-73.9); Platelet Count 67 T/CUMM (130-400); Red Blood Count 4.52 MC/CUMM (3.8-5.5); White Blood Count 2.9 T/CUMM (4-12)
[2022-08-12 06:05] LABS: Calcium 9.2 MG/DL (8.5-10.1); Osmolality,Calculated 277.4 MOS/KG (273-304); Potassium 3.7 MMOL/L (3.5-5.1)
[2022-08-12 06:08] LABS: Platelet Estimate Decreased
[2022-08-12 06:09] LABS: Hypochromia Slight; Microcytosis Slight
[2022-08-12] MEDS: NITROGLYCERIN SL 0.4 MG TABLET SL PRN ×2 (06:48→10:18)
[2022-08-12] MEDS ORDERED: ALUM/MAG/SIMETH/LIDO VISC 1:1 30 ML BOTTLE PO ONE (06:53)
[2022-08-12] MEDS: INSULIN REGULAR 100 UNIT/ML SUBCUT SCH ×4 (07:47→21:36)
[2022-08-12] MEDS: traMADol 50 MG TABLET PO PRN ×2 (10:06→21:23)
[2022-08-12] MEDS: VALSARTAN 160 MG TABLET PO SCH (10:07)
[2022-08-12] MEDS: TICAGRELOR 90 MG TABLET PO SCH ×2 (10:08→21:23)
[2022-08-12] MEDS: ROSUVASTATIN 20 MG TABLET PO SCH (10:08)
[2022-08-12] MEDS: METOPROLOL TARTRATE 50 MG TABLET PO SCH ×2 (10:08→21:23)
[2022-08-12] MEDS: RANOLAZINE 500 MG TABLET PO SCH ×2 (10:08→21:23)
[2022-08-12] MEDS: PANTOPRAZOLE 40 MG TABLET PO SCH (10:08)
[2022-08-12] MEDS: ISOSORBIDE MONONITRATE 60 MG TABLET PO SCH (10:08)
[2022-08-12] MEDS: SPIRONOLACTONE 25 MG TABLET PO SCH (10:08)
[2022-08-12] MEDS: ASPIRIN EC 81 MG TABLET PO SCH (10:09)
[2022-08-12] MEDS: POTASSIUM CHLORIDE 20 MEQ TABLET PO SCH (10:09)
[2022-08-12] MEDS ORDERED: MAGNESIUM SULF RIDER 2 GM/50 ML PREMIX IV ONE (10:49)
[2022-08-12] MEDS ORDERED: KETOROLAC 30 MG/1 ML VIAL IV ONE (12:08)
[2022-08-12] MEDS ORDERED: ZALEPLON 5 MG CAPSULE PO PRN (20:05)
[2022-08-12] MEDS: ENOXAPARIN 40 MG/0.4 ML SYRINGE SUBCUT SCH (21:23)
[2022-08-13 05:06] LABS: Osmolality,Calculated 273.7 MOS/KG (273-304); Potassium 3.7 MMOL/L (3.5-5.1)
[2022-08-13 05:49] LABS: Basophils % 0.7 % (0.0-0.8); Eosinophils # 0.1 10*3/uL (0.0-0.87); Eosinophils % 1.7 % (0.00-10.9); Hematocrit 36.3 VOL% (35.7-47.0); Hemoglobin 11.9 GM/DL (12.0-16.0); Immature Granulocytes % 0.3 %; Immature Granulocytes Absolute 0.01 #; Lymphocytes # 0.7 10*3/uL (1.4-4.0); Mean Corpuscular HGB Conc 32.8 GM/DL (32-36); Mean Corpuscular Volume 84.8 FL (87-102); Mean Platelet Volume 11.3 FL (9.6-12.0); Monocytes # 0.4 10*3/uL (0.11-0.8); Monocytes % 12.2 % (1.7-12.7); Neutrophils % 62.1 % (38.7-73.9); Platelet Count 64 T/CUMM (130-400); Red Blood Count 4.28 MC/CUMM (3.8-5.5); Red Cell Distribution Width 18.9 % (9.3-17.3); White Blood Count 2.9 T/CUMM (4-12)
[2022-08-13 05:56] LABS: Hypochromia Slight; Microcytosis Slight; Platelet Estimate Decreased
[2022-08-13 08:23] VITALS: BP 163/75
[2022-08-13] MEDS: INSULIN REGULAR 100 UNIT/ML SUBCUT SCH ×2 (08:32→11:58)
[2022-08-13] MEDS: RANOLAZINE 500 MG TABLET PO SCH (08:35)
[2022-08-13] MEDS: SPIRONOLACTONE 25 MG TABLET PO SCH (08:35)
[2022-08-13] MEDS: ASPIRIN EC 81 MG TABLET PO SCH (08:35)
[2022-08-13] MEDS: PANTOPRAZOLE 40 MG TABLET PO SCH (08:35)
[2022-08-13] MEDS: ROSUVASTATIN 20 MG TABLET PO SCH (08:35)
[2022-08-13] MEDS: POTASSIUM CHLORIDE 20 MEQ TABLET PO SCH (08:36)
[2022-08-13] MEDS: ISOSORBIDE MONONITRATE 60 MG TABLET PO SCH (08:38)
[2022-08-13] MEDS: TICAGRELOR 90 MG TABLET PO SCH (08:39)
[2022-08-13] MEDS ORDERED: LEVOTHYROXINE 50 MCG TABLET PO SCH (09:00)
[2022-08-13] MEDS ORDERED: METOPROLOL TARTRATE 100 MG TABLET PO SCH (09:00)
[2022-08-13] MEDS ORDERED: VALSARTAN 160 MG TABLET PO SCH (09:00)
[2022-08-13] MEDS ORDERED: DOCUSATE SODIUM 100 MG CAPSULE PO SCH (09:00)
[2022-08-13] MEDS: traMADol 50 MG TABLET PO PRN (10:40)
== END 2022-08-13 11:12 | disposition home or self-care (01) ==
LOC: N.TELEN 00:20 → N.ED 00:20 → N.TELEN 03:19
PROVIDERS: ADMIT Family Medicine; ATTEND Family Medicine

== ENCOUNTER 2022-08-18 15:49 | Observation (INO) ==
[2022-08-18] MEDS ORDERED: ASPIRIN 325 MG TABLET PO STA (16:26)
[2022-08-18] MEDS ORDERED: MORPHINE 2 MG/1 ML SYRINGE IV STA (16:26)
[2022-08-18] MEDS ORDERED: NITROGLYCERIN SL 0.4 MG TABLET SL PRN ×2 (16:26→18:20)
[2022-08-18 17:07] LABS: Albumin 4.1 G/DL (3.4-5.0); Bilirubin,Total 0.8 MG/DL (0.20-1.00); Calcium 9.6 MG/DL (8.5-10.1); Osmolality,Calculated 267.1 MOS/KG (273-304); Potassium 3.8 MMOL/L (3.5-5.1); Total Protein 7.8 G/DL (6.4-8.2)
[2022-08-18 17:36] LABS: Basophils % 0.2 % (0.0-0.8); Eosinophils % 0.7 % (0.00-10.9); Hematocrit 39.4 VOL% (35.7-47.0); Hemoglobin 13.4 GM/DL (12.0-16.0); Immature Granulocytes % 0.2 %; Immature Granulocytes Absolute 0.01 #; Lymphocytes # 0.9 10*3/uL (1.4-4.0); Lymphocytes % 20.6 % (21.3-54.2); Mean Corpuscular Volume 83.7 FL (87-102); Monocytes # 0.4 10*3/uL (0.11-0.8); Monocytes % 9.4 % (1.7-12.7); Neutrophils % 68.9 % (38.7-73.9); Platelet Count 74 T/CUMM (130-400); Red Blood Count 4.71 MC/CUMM (3.8-5.5); Red Cell Distribution Width 18.2 % (9.3-17.3); White Blood Count 4.4 T/CUMM (4-12)
[2022-08-18 17:43] LABS: INR 1.1; PT Patient Result 11.7 SECS (10.1-12.1); Partial Thromboplastin Time 25.5 SECS (23.7-32.9)
[2022-08-18] MEDS ORDERED: DIAZEPAM 10 MG/2 ML SYRINGE IV STA (17:45)
[2022-08-18] MEDS ORDERED: ONDANSETRON 4 MG/2 ML VIAL IV PRN (18:17)
[2022-08-18] MEDS ORDERED: MAGNESIUM SULF RIDER 2 GM/50 ML PREMIX IV PRN (18:17)
[2022-08-18] MEDS ORDERED: MORPHINE 2 MG/1 ML SYRINGE IV PRN (18:17)
[2022-08-18] MEDS ORDERED: MAGNESIUM SULF RIDER 4 GM/100 ML PREMIX IV PRN (18:17)
[2022-08-18] MEDS: RANOLAZINE 500 MG TABLET PO SCH (20:59)
[2022-08-18] MEDS: OXYBUTYNIN 5 MG TABLET PO SCH (20:59)
[2022-08-18] MEDS: MELATONIN 3 MG TABLET PO SCH (20:59)
[2022-08-18] MEDS: METOPROLOL TARTRATE 100 MG TABLET PO SCH (21:00)
[2022-08-18] MEDS: TICAGRELOR 90 MG TABLET PO SCH (21:00)
[2022-08-18] MEDS: ENOXAPARIN 60 MG/0.6 ML SYRINGE SUBCUT SCH (21:00)
[2022-08-18] MEDS ORDERED: busPIRone 5 MG TABLET PO SCH (21:00)
[2022-08-18] MEDS: SODIUM CHLORIDE 0.45% 1,000 ML IV SCH (21:01)
[2022-08-19] MEDS: SODIUM CHLORIDE 0.45% 1,000 ML IV SCH ×4 (03:40→22:29)
[2022-08-19] MEDS ORDERED: PHENOL 1.4% THROAT SPRAY 177 ML BOTTLE PO PRN (04:08)
[2022-08-19] MEDS: LEVOTHYROXINE 50 MCG TABLET PO SCH (06:10)
[2022-08-19] MEDS: DOCUSATE SODIUM 100 MG CAPSULE PO SCH (10:20)
[2022-08-19] MEDS: SPIRONOLACTONE 25 MG TABLET PO SCH (10:21)
[2022-08-19] MEDS: MULTIVITAMIN (CENTRUM) TABLET PO SCH (10:21)
[2022-08-19] MEDS: ASPIRIN EC 81 MG TABLET PO SCH (10:21)
[2022-08-19] MEDS: TICAGRELOR 90 MG TABLET PO SCH ×2 (10:21→21:37)
[2022-08-19] MEDS: OXYBUTYNIN 5 MG TABLET PO SCH ×2 (10:22→21:36)
[2022-08-19] MEDS: ROSUVASTATIN 20 MG TABLET PO SCH (10:22)
[2022-08-19] MEDS: clonazePAM 0.5 MG TABLET PO SCH ×3 (10:22→21:37)
[2022-08-19] MEDS: ISOSORBIDE MONONITRATE 60 MG TABLET PO SCH (10:22)
[2022-08-19] MEDS: VALSARTAN 80 MG TABLET PO SCH (10:22)
[2022-08-19] MEDS: ENOXAPARIN 60 MG/0.6 ML SYRINGE SUBCUT SCH ×2 (10:23→21:37)
[2022-08-19] MEDS: METOPROLOL TARTRATE 100 MG TABLET PO SCH ×2 (10:23→21:36)
[2022-08-19] MEDS: RANOLAZINE 500 MG TABLET PO SCH ×2 (10:23→21:37)
[2022-08-19] MEDS: PANTOPRAZOLE 40 MG TABLET PO SCH (10:23)
[2022-08-19] MEDS: SERTRALINE 50 MG TABLET PO SCH (10:23)
[2022-08-19] MEDS ORDERED: SITAGLIPTIN PO SCH (17:00)
[2022-08-19] MEDS ORDERED: METFORMIN PO SCH (17:00)
[2022-08-19] MEDS ORDERED: [UNRECOGNIZED DRUG - OTHER] PO SCH (17:00)
[2022-08-19] MEDS ORDERED: traZODone 50 MG TABLET PO SCH (21:00)
[2022-08-19] MEDS: MELATONIN 3 MG TABLET PO SCH (21:36)
[2022-08-20] MEDS: SODIUM CHLORIDE 0.45% 1,000 ML IV SCH ×3 (02:29→16:48)
[2022-08-20 05:48] LABS: Basophils % 0.5 % (0.0-0.8); Eosinophils % 0.9 % (0.00-10.9); Hematocrit 32.3 VOL% (35.7-47.0); Hemoglobin 10.7 GM/DL (12.0-16.0); Immature Granulocytes % 0.5 %; Immature Granulocytes Absolute 0.01 #; Lymphocytes # 0.8 10*3/uL (1.4-4.0); Lymphocytes % 36.3 % (21.3-54.2); Mean Corpuscular HGB Conc 33.1 GM/DL (32-36); Mean Corpuscular Volume 86.4 FL (87-102); Mean Platelet Volume 11.1 FL (9.6-12.0); Monocytes # 0.3 10*3/uL (0.11-0.8); Monocytes % 11.6 % (1.7-12.7); Neutrophils % 50.2 % (38.7-73.9); Platelet Count 61 T/CUMM (130-400); Red Blood Count 3.74 MC/CUMM (3.8-5.5); Red Cell Distribution Width 18.3 % (9.3-17.3); White Blood Count 2.2 T/CUMM (4-12)
[2022-08-20] MEDS: LEVOTHYROXINE 50 MCG TABLET PO SCH (05:51)
[2022-08-20 06:08] LABS: Calcium 8.5 MG/DL (8.5-10.1); Potassium 3.3 MMOL/L (3.5-5.1)
[2022-08-20 06:11] LABS: Hypochromia Slight; Microcytosis Slight; Platelet Estimate Decreased
[2022-08-20] MEDS ORDERED: POTASSIUM CHLORIDE 20 MEQ TABLET PO ONE (07:05)
[2022-08-20] MEDS ORDERED: ENOXAPARIN 30 MG/0.3 ML SYRINGE SUBCUT SCH (09:00)
[2022-08-20] MEDS ORDERED: METFORMIN PO SCH (09:00)
[2022-08-20] MEDS ORDERED: SITAGLIPTIN PO SCH (09:00)
[2022-08-20] MEDS: SPIRONOLACTONE 25 MG TABLET PO SCH (10:07)
[2022-08-20] MEDS: ASPIRIN EC 81 MG TABLET PO SCH (10:08)
[2022-08-20] MEDS: ROSUVASTATIN 20 MG TABLET PO SCH (10:08)
[2022-08-20] MEDS: VALSARTAN 80 MG TABLET PO SCH (10:08)
[2022-08-20] MEDS: MULTIVITAMIN (CENTRUM) TABLET PO SCH (10:08)
[2022-08-20] MEDS: DOCUSATE SODIUM 100 MG CAPSULE PO SCH (10:08)
[2022-08-20] MEDS: ISOSORBIDE MONONITRATE 60 MG TABLET PO SCH (10:09)
[2022-08-20] MEDS: METOPROLOL TARTRATE 100 MG TABLET PO SCH (10:09)
[2022-08-20] MEDS: OXYBUTYNIN 5 MG TABLET PO SCH (10:09)
[2022-08-20] MEDS: RANOLAZINE 500 MG TABLET PO SCH (10:09)
[2022-08-20] MEDS: PANTOPRAZOLE 40 MG TABLET PO SCH (10:09)
[2022-08-20] MEDS: clonazePAM 0.5 MG TABLET PO SCH ×2 (10:09→16:47)
[2022-08-20] MEDS: SERTRALINE 50 MG TABLET PO SCH (10:10)
[2022-08-20] MEDS: TICAGRELOR 90 MG TABLET PO SCH (10:17)
[2022-08-20 12:40] VITALS: BP 116/63
[2022-08-22] MEDS ORDERED: LEVOTHYROXINE 75 MCG TABLET PO SCH (06:30)
== END 2022-08-20 16:14 | disposition home or self-care (01) ==
LOC: N.ED 15:49 → INTOOBSV 18:17 → N.EDINP 18:17 → N.TELES 19:32
PROVIDERS: ADMIT Family Medicine; ATTEND Family Medicine